=== PATIENT | female | born 1930 | race Caucasian/White ===

== ENCOUNTER → 2016-10-23 | Outpatient (REF) | payer MEDICARE, OTHER ==
[~2016-10-23] MED LIST: ACET-654 PO; ACET650T2 PO; ALBU17IN INH; ANUC25SU PR; ANUSHCSU PR; ASPI1TAB PO; AUGM875T27 PO; AZEL0.1S3; BIMA01SOL OU; CALCCAP12 PO; CRES5TAB PO; FLON0.054; HYDR12.55 PO; IBUPOTC PO; LIDO1PAD TOP; LISI25TA PO; META28PO PO; POTA1TAB14 PO; TRAM50TA2 PO; VAGI10TA VA; VITA10002 PO; VITA100041 PO; VOLT1GEL24 TD
[2016-10-23 17:28] LABS: FOLATE > 24.0 NG/ML; VITAMIN B12 LEVEL 1409 PG/ML
== END ==
LOC: M LAB REF 16:17
PROVIDERS: ATTEND Internal Medicine
DX: I10 Essential (primary) hypertension (principal); D52.8 Other folate deficiency anemias

== ENCOUNTER → 2016-12-07 | Outpatient (REF) | payer MEDICARE, OTHER | LOC: M LAB REF 16:32 | PROVIDERS: ATTEND Obstetrics & Gynecology | DX: R10.814 Left lower quadrant abdominal tenderness (principal); R10.32 Left lower quadrant pain ==

== ENCOUNTER → 2017-05-22 | Outpatient (REF) | payer MEDICARE, OTHER ==
[~2017-05-22] MED LIST changes: -ACET-654 PO; +ACET1TAB17 PO; -ACET650T2 PO; +ACET650T3 PO; -AUGM875T27 PO; +AUGM875T28 PO; -CALCCAP12 PO; +CALCCAP2 PO; +LISI2.5T76 PO; -LISI25TA PO; +VITA-182 PO; -VITA100041 PO; +VOLT1GEL15 TD; -VOLT1GEL24 TD
== END ==
LOC: M LAB REF 16:29
PROVIDERS: ATTEND Nurse Practitioner Adult Health
DX: R30.0 Dysuria (principal)

== ENCOUNTER → 2017-09-03 | Outpatient (REF) | payer MEDICARE, OTHER | LOC: M LAB REF 18:22 | PROVIDERS: ATTEND Nurse Practitioner Family | DX: N39.0 Urinary tract infection, site not specified (principal) ==

== ENCOUNTER → 2017-10-10 | Outpatient (REF) | payer MEDICARE, OTHER | LOC: M LAB REF 13:11 | DX: R31.9 Hematuria, unspecified (principal) | CPT/HCPCS: 88108 ==

== ENCOUNTER → 2017-10-31 | Outpatient (REF) | payer MEDICARE, OTHER | LOC: M LAB REF 17:11 | DX: R31.29 Other microscopic hematuria (principal); R93.5 Abnormal findings on diagnostic imaging of other abdominal regions, including retroperitoneum | CPT/HCPCS: 88108 ==

== ENCOUNTER → 2017-12-03 | Outpatient (REF) | payer MEDICARE, OTHER | LOC: M LAB REF 16:45 | DX: R31.29 Other microscopic hematuria (principal); N39.0 Urinary tract infection, site not specified | CPT/HCPCS: 88108 ==

== ENCOUNTER 2018-01-01 09:09 | Observation (INO) | payer MEDICARE, OTHER ==
[2018-01-01 09:46] LABS: BASO # 0.1 10^3/uL (0.0-0.2); BASO % 0.8 % (0.0-1.0); EOS # 0.2 10^3/uL (0.0-0.50); EOS % 2.2 % (0.0-3.0); HEMATOCRIT 38.5 % (36.0-47.0); HEMOGLOBIN 12.7 g/dl (12.0-16.0); IMMATURE GRANULOCYTE % 0.4 % (0-3.0); LYMPH # 2.9 10^3/uL (1.5-4.5); LYMPH % 26.8 % (24.0-44.0); MEAN CORPUSCULAR HEMOGLOBIN 34.5 pg (27.0-33.0); MEAN CORPUSCULAR VOLUME 104.6 fl (80.0-96.0); MONO # 0.8 10^3/uL (0.0-0.8); MONO % 7.6 % (0.0-5.0); NEUTROPHILS # 6.8 10^3/uL (1.8-7.7); NEUTROPHILS % 62.2 % (36.0-66.0); PLATELET COUNT, AUTOMATED 270 10^3/uL (150-450); RED BLOOD COUNT 3.68 10^6/uL (4.00-5.40); RED CELL DISTRIBUTION WIDTH 12.4 % (11.5-14.5); WHITE BLOOD COUNT 10.9 10^3/uL (4.0-10.0)
[2018-01-01 10:14] LABS: INR 1.05; PROTHROMBIN TIME 13.8 SECONDS (12.4-14.5)
[2018-01-01 10:20] LABS: ANION GAP 8 MEQ/L (8-16); BLOOD UREA NITROGEN 18 MG/DL (7-18); CALCIUM LEVEL 8.2 MG/DL (8.8-10.2); CARBON DIOXIDE LEVEL 25 MEQ/L (21-32); CHLORIDE LEVEL 109 MEQ/L (98-107); CK-MB VALUE MASS 1.1 NG/ML (<3.6); CPK CREATINE PHOSPHOKINASE 57 U/L (26-192); CREATININE FOR GFR 0.68 MG/DL (0.55-1.30); GLOMERULAR FILTRATION RATE > 60.0 (>32); GLUCOSE, FASTING 93 MG/DL (70-100); MB/CK RELATIVE INDEX 1.92 (< OR =4); SODIUM LEVEL 142 MEQ/L (136-145); TROPONIN I < 0.02 NG/ML (< 0.10)
[2018-01-01 10:25] LABS: ALBUMIN 3.2 GM/DL (3.2-5.2); ALBUMIN/GLOBULIN RATIO 0.86 (1.00-1.93); ALKALINE PHOSPHATASE 61 U/L (45-117); ALT/SGPT 16 U/L (12-78); AST/SGOT 18 U/L (7-37); BILIRUBIN,DIRECT < 0.1 MG/DL (0.0-0.2); BILIRUBIN,TOTAL 0.3 MG/DL (0.2-1.0); NT-PRO BNP 948 PG/ML (<450); THYROXINE (T4) 6.6 UG/DL (4.5-12.0); TOTAL PROTEIN 6.9 GM/DL (6.4-8.2)
[2018-01-01 10:47] LABS: MAGNESIUM LEVEL 2.4 MG/DL (1.8-2.4)
[2018-01-01] MEDS ORDERED: BISOPROLOL FUM 2.5 MG PER 1/2TAB PO (11:00)
[2018-01-01 11:35] LABS: KETONE, URINE AUTO RFX NEGATIVE (NEGATIVE); LEUKOCYTE ESTERASE UR AUTO RFX NEGATIVE (NEGATIVE); MUCUS, URINE RFX SMALL (NEGATIVE); NITRITE, URINE AUTO RFX NEGATIVE (NEGATIVE); RBC, URINE AUTO RFX 26 /HPF (0-3); SPECIFIC GRAVITY UR AUTO RFX 1.014 (1.002-1.035); SQUAM EPITHELIAL CELL UR AURFX 19 /HPF (0-6); WBC, URINE AUTO RFX TNTC /HPF (0-3)
[2018-01-01] MEDS: DIGOXIN 0.25 MG TAB PO (11:55)
[2018-01-01] MEDS: BISOPROLOL FUMARATE 5 MG TAB PO (11:56)
[2018-01-01] MEDS ORDERED: ACETAMINOPHEN TAB 650MG DOSE (2X325MG) PO (15:00)
[2018-01-01] MEDS: LIDOCAINE 5% (LIDODERM) PATCH TOP (16:52)
[2018-01-01] MEDS: ASPIRIN 81 MG ENTERIC TAB PO (16:52)
[2018-01-01] MEDS: traMADol 50 MG TAB PO (16:53)
[2018-01-01 18:50] LABS: CK-MB VALUE MASS 1.6 NG/ML (<3.6); CPK CREATINE PHOSPHOKINASE 55 U/L (26-192); TROPONIN I < 0.02 NG/ML (< 0.10)
[2018-01-01] MEDS: **NOTE PATIENT COMMENT** MISC XX (21:00)
[2018-01-01] MEDS: APIXABAN 2.5 MG TAB (ELIQUIS) PO (21:13)
[2018-01-01] MEDS ORDERED: SLF 3 ML SYR IV (22:30)
[2018-01-01] MEDS: AZELASTINE 137MCG NASAL SPY 30 ML (ASTELIN) (22:34)
[2018-01-01] MEDS: SLF 3 ML SYR IV (22:35)
[2018-01-02 03:05] LABS: BASO # 0.1 10^3/uL (0.0-0.2); EOS # 0.4 10^3/uL (0.0-0.50); EOS % 3.4 % (0.0-3.0); HEMATOCRIT 37.1 % (36.0-47.0); HEMOGLOBIN 12.3 g/dl (12.0-16.0); IMMATURE GRANULOCYTE % 0.3 % (0-3.0); LYMPH # 3.5 10^3/uL (1.5-4.5); LYMPH % 33.9 % (24.0-44.0); MEAN CORPUSCULAR HEMOGLOBIN 34.3 pg (27.0-33.0); MEAN CORPUSCULAR HGB CONC 33.2 g/dl (32.0-36.5); MEAN CORPUSCULAR VOLUME 103.3 fl (80.0-96.0); MONO % 9.3 % (0.0-5.0); NEUTROPHILS # 5.4 10^3/uL (1.8-7.7); NEUTROPHILS % 52.1 % (36.0-66.0); PLATELET COUNT, AUTOMATED 276 10^3/uL (150-450); RED BLOOD COUNT 3.59 10^6/uL (4.00-5.40); RED CELL DISTRIBUTION WIDTH 12.4 % (11.5-14.5); WHITE BLOOD COUNT 10.3 10^3/uL (4.0-10.0)
[2018-01-02 03:34] LABS: ALBUMIN 3.3 GM/DL (3.2-5.2); ALBUMIN/GLOBULIN RATIO 0.92 (1.00-1.93); ALKALINE PHOSPHATASE 56 U/L (45-117); ALT/SGPT 15 U/L (12-78); ANION GAP 7 MEQ/L (8-16); AST/SGOT 13 U/L (7-37); BILIRUBIN,TOTAL 0.3 MG/DL (0.2-1.0); BLOOD UREA NITROGEN 15 MG/DL (7-18); CALCIUM LEVEL 8.6 MG/DL (8.8-10.2); CARBON DIOXIDE LEVEL 25 MEQ/L (21-32); CHLORIDE LEVEL 112 MEQ/L (98-107); CPK CREATINE PHOSPHOKINASE 52 U/L (26-192); CREATININE FOR GFR 0.61 MG/DL (0.55-1.30); GLOMERULAR FILTRATION RATE > 60.0 (>32); GLUCOSE, FASTING 86 MG/DL (70-100); POTASSIUM SERUM 3.7 MEQ/L (3.5-5.1); SODIUM LEVEL 144 MEQ/L (136-145); TOTAL PROTEIN 6.9 GM/DL (6.4-8.2); TROPONIN I < 0.02 NG/ML (< 0.10)
[2018-01-02 03:43] LABS: CK-MB VALUE MASS 1.3 NG/ML (<3.6); DIGOXIN LEVEL 0.4 NG/ML (0.5-2.0)
[2018-01-02] MEDS: ASPIRIN 81 MG ENTERIC TAB PO (09:43)
[2018-01-02] MEDS: DIGOXIN 0.125 MG TAB PO (09:44)
[2018-01-02] MEDS: BISOPROLOL FUM 2.5 MG PER 1/2TAB PO (09:44)
[2018-01-02] MEDS: APIXABAN 2.5 MG TAB (ELIQUIS) PO (09:44)
[2018-01-02] MEDS: AZELASTINE 137MCG NASAL SPY 30 ML (ASTELIN) (09:45)
[2018-01-02 10:18] LABS: TROPONIN I < 0.02 NG/ML (< 0.10)
[2018-01-02 10:19] LABS: CK-MB VALUE MASS 1.1 NG/ML (<3.6); CPK CREATINE PHOSPHOKINASE 56 U/L (26-192); MB/CK RELATIVE INDEX 1.96 (< OR =4)
[2018-01-02] MEDS: CEFDINIR 300 MG CAP (OMNICEF) PO (12:39)
== END 2018-01-02 12:50 | disposition home or self-care (01) ==
LOC: M ED 09:09 → M ED INP 14:42 → M PCU 21:20
DX: I48.0 Paroxysmal atrial fibrillation (principal); N30.00 Acute cystitis without hematuria; R26.81 Unsteadiness on feet; M48.07 Spinal stenosis, lumbosacral region; I44.0 Atrioventricular block, first degree; I11.0 Hypertensive heart disease with heart failure; I50.30 Unspecified diastolic (congestive) heart failure; M79.609 Pain in unspecified limb; G89.29 Other chronic pain; J30.9 Allergic rhinitis, unspecified; Z95.0 Presence of cardiac pacemaker; D72.829 Elevated white blood cell count, unspecified; Z79.899 Other long term (current) drug therapy; Z79.01 Long term (current) use of anticoagulants; Z79.82 Long term (current) use of aspirin; Z79.891 Long term (current) use of opiate analgesic; Z88.2 Allergy status to sulfonamides
CPT/HCPCS: 71045

== ENCOUNTER → 2018-01-23 | Outpatient (REF) | payer MEDICARE, OTHER | LOC: M LAB REF 16:30 | DX: R31.0 Gross hematuria (principal) | CPT/HCPCS: 87086 ==

== ENCOUNTER 2018-01-24 13:48 | Emergency (ER) | payer MEDICARE, OTHER ==
[2018-01-24 15:44] LABS: HEMATOCRIT 36.8 % (36.0-47.0); HEMOGLOBIN 12.3 g/dl (12.0-15.5); MEAN CORPUSCULAR HEMOGLOBIN 34.5 pg (27.0-33.0); MEAN CORPUSCULAR HGB CONC 33.4 g/dl (32.0-36.5); MEAN CORPUSCULAR VOLUME 103.1 fl (80.0-96.0); PLATELET COUNT, AUTOMATED 241 10^3/uL (150-450); RED BLOOD COUNT 3.57 10^6/uL (4.00-5.40); RED CELL DISTRIBUTION WIDTH 13.1 % (11.5-14.5); WHITE BLOOD COUNT 7.4 10^3/uL (4.0-10.0)
[2018-01-24 16:06] LABS: ANION GAP 7 MEQ/L (8-16); BLOOD UREA NITROGEN 13 MG/DL (7-18); CALCIUM LEVEL 8.8 MG/DL (8.8-10.2); CARBON DIOXIDE LEVEL 25 MEQ/L (21-32); CHLORIDE LEVEL 110 MEQ/L (98-107); CREATININE FOR GFR 0.79 MG/DL (0.55-1.30); GLOMERULAR FILTRATION RATE > 60.0 (>32); GLUCOSE, FASTING 93 MG/DL (70-100); POTASSIUM SERUM 4.4 MEQ/L (3.5-5.1); SODIUM LEVEL 142 MEQ/L (136-145)
[2018-01-24 16:21] LABS: BILIRUBIN, URINE MANUAL NEGATIVE (NEGATIVE); BLOOD URINE MANUAL RFX POSITIVE (NEGATIVE); GLUCOSE, URINE (UA) MANUAL NEGATIVE (NEGATIVE); KETONE, URINE MANUAL NEGATIVE (NEGATIVE); NITRITE, URINE MANUAL RFX NEGATIVE (NEGATIVE); PROTEIN, URINE MANUAL REFLEX 2+ mg/dL (NEGATIVE); UROBILINOGEN, URINE MANUAL NORMAL (NORMAL)
[2018-01-24 16:22] LABS: BACTERIA, URINE NONE SEEN; HYALINE CAST, URINE NONE SEEN /lpf (0-1); MICROSCOPIC EXAM PERFORMED; MICROSCOPIC INDICATED? RFX YES (NO); RBC, URINE TNTC /hpf (0-3)
== END 2018-01-24 17:36 | disposition home or self-care (01) ==
LOC: M ED 13:48
DX: R31.9 Hematuria, unspecified (principal); I48.91 Unspecified atrial fibrillation; I25.10 Atherosclerotic heart disease of native coronary artery without angina pectoris; I10 Essential (primary) hypertension; M19.90 Unspecified osteoarthritis, unspecified site; R13.10 Dysphagia, unspecified; M48.00 Spinal stenosis, site unspecified; I44.2 Atrioventricular block, complete; N32.9 Bladder disorder, unspecified; Z95.0 Presence of cardiac pacemaker; Z79.82 Long term (current) use of aspirin; Z79.899 Other long term (current) drug therapy; Z79.891 Long term (current) use of opiate analgesic; Z88.0 Allergy status to penicillin
CPT/HCPCS: 80048

== ENCOUNTER → 2018-01-28 | Outpatient (REF) | payer MEDICARE, OTHER ==
[2018-01-28 17:19] LABS: AMORPHOUS SEDIMENT SMALL (NEGATIVE); APPEARANCE, URINE CLOUDY (CLEAR); BACTERIA, URINE AUTO 1+ (NEGATIVE); BILIRUBIN, URINE AUTO NEGATIVE (NEGATIVE); BLOOD, URINE BLOOD 1+ (NEGATIVE); COLOR, URINE RED (YELLOW); GLUCOSE, URINE (UA) AUTO NEGATIVE (NEGATIVE); KETONE, URINE AUTO TRACE mg/dL (NEGATIVE); LEUKOCYTE ESTERASE, URINE AUTO 2+ (NEGATIVE); NITRITE, URINE AUTO NEGATIVE (NEGATIVE); PROTEIN, URINE AUTO 2+ mg/dL (NEGATIVE); RBC, URINE AUTO 2 /HPF (0-3); SPECIFIC GRAVITY URINE AUTO 1.011 (1.002-1.035); SQUAMOUS EPITHELIAL CELL UR AU 0 /HPF (0-6); UROBILINOGEN, URINE AUTO 0.2 mg/dL (0.0-2.0); WBC, URINE AUTO 168 /HPF (0-3)
== END ==
LOC: M SMT 16:53
DX: R31.0 Gross hematuria (principal)
CPT/HCPCS: 81001

== ENCOUNTER → 2018-02-12 | Outpatient (REF) | payer MEDICARE, OTHER ==
[2018-02-12 13:30] LABS: BASO # 0.1 10^3/uL (0.0-0.2); BASO % 0.9 % (0.0-1.0); EOS # 0.1 10^3/uL (0.0-0.50); EOS % 1.3 % (0.0-3.0); HEMOGLOBIN 11.8 g/dl (12.0-15.5); IMMATURE GRANULOCYTE % 0.4 % (0-3.0); LYMPH # 2.1 10^3/uL (1.5-4.5); LYMPH % 23.6 % (24.0-44.0); MEAN CORPUSCULAR HGB CONC 32.8 g/dl (32.0-36.5); MEAN CORPUSCULAR VOLUME 103.7 fl (80.0-96.0); MONO # 0.6 10^3/uL (0.0-0.8); MONO % 6.8 % (0.0-5.0); PLATELET COUNT, AUTOMATED 253 10^3/uL (150-450); RED BLOOD COUNT 3.47 10^6/uL (4.00-5.40)
[2018-02-12 14:08] LABS: ALBUMIN 3.8 GM/DL (3.2-5.2); ANION GAP 6 MEQ/L (8-16); BLOOD UREA NITROGEN 13 MG/DL (7-18); CALCIUM LEVEL 8.8 MG/DL (8.8-10.2); CARBON DIOXIDE LEVEL 28 MEQ/L (21-32); CHLORIDE LEVEL 103 MEQ/L (98-107); CREATININE FOR GFR 0.92 MG/DL (0.55-1.30); GLOMERULAR FILTRATION RATE > 60.0 (>32); GLUCOSE, FASTING 95 MG/DL (70-100); MAGNESIUM LEVEL 2.6 MG/DL (1.8-2.4); PHOSPHORUS LEVEL 3.2 MG/DL (2.5-4.9); POTASSIUM SERUM 4.2 MEQ/L (3.5-5.1); SODIUM LEVEL 137 MEQ/L (136-145)
[2018-02-12 14:12] LABS: APPEARANCE, URINE CLOUDY (CLEAR); BACTERIA, URINE AUTO 1+ (NEGATIVE); BILIRUBIN, URINE AUTO NEGATIVE (NEGATIVE); BLOOD, URINE BLOOD NEGATIVE (NEGATIVE); CALCIUM OXALATE CRYSTALS SMALL; COLOR, URINE YELLOW (YELLOW); GLUCOSE, URINE (UA) AUTO NEGATIVE (NEGATIVE); KETONE, URINE AUTO NEGATIVE (NEGATIVE); LEUKOCYTE ESTERASE, URINE AUTO 1+ (NEGATIVE); MUCUS, URINE SMALL (NEGATIVE); NITRITE, URINE AUTO NEGATIVE (NEGATIVE); PROTEIN, URINE AUTO NEGATIVE (NEGATIVE); RBC, URINE AUTO 2 /HPF (0-3); SPECIFIC GRAVITY URINE AUTO 1.013 (1.002-1.035); SQUAMOUS EPITHELIAL CELL UR AU 11 /HPF (0-6); UROBILINOGEN, URINE AUTO 0.2 mg/dL (0.0-2.0); WBC, URINE AUTO 12 /HPF (0-3)
== END ==
LOC: M LAB REF 13:06
DX: I11.9 Hypertensive heart disease without heart failure (principal); I48.0 Paroxysmal atrial fibrillation
CPT/HCPCS: 83735

== ENCOUNTER → 2018-02-18 | Outpatient (REF) | payer MEDICARE, OTHER | LOC: M SMT 17:07 | DX: R31.29 Other microscopic hematuria (principal) | CPT/HCPCS: 88108 ==

== ENCOUNTER → 2018-04-24 | Outpatient (REF) | payer MEDICARE, OTHER ==
[2018-04-24 20:40] LABS: FOLATE > 24.0 NG/ML; TOTAL 25(OH) VITAMIN D 69.6 NG/ML (30.0-100.0); VITAMIN B12 LEVEL 1481 PG/ML
[2018-04-24 20:41] LABS: ALBUMIN 4.1 GM/DL (3.2-5.2); ALBUMIN/GLOBULIN RATIO 1.14 (1.00-1.93); ALKALINE PHOSPHATASE 60 U/L (45-117); ALT/SGPT 20 U/L (12-78); ANION GAP 7 MEQ/L (8-16); AST/SGOT 16 U/L (7-37); BILIRUBIN,TOTAL 0.3 MG/DL (0.2-1.0); BLOOD UREA NITROGEN 18 MG/DL (7-18); CARBON DIOXIDE LEVEL 26 MEQ/L (21-32); CHLORIDE LEVEL 104 MEQ/L (98-107); CREATININE FOR GFR 1.01 MG/DL (0.55-1.30); FREE T3 2.3 PG/ML (2.2-4.0); FREE T4 1.11 NG/DL (0.76-1.46); GLOMERULAR FILTRATION RATE 55.2 (>32); GLUCOSE, FASTING 66 MG/DL (70-100); POTASSIUM SERUM 4.5 MEQ/L (3.5-5.1); RHEUMATOID FACTOR QUANT < 10.0 IU/ML (<15.0); SODIUM LEVEL 137 MEQ/L (136-145); TOTAL PROTEIN 7.7 GM/DL (6.4-8.2)
[2018-04-24 20:53] LABS: BASO # 0.1 10^3/uL (0.0-0.2); BASO % 0.9 % (0.0-1.0); EOS # 0.2 10^3/uL (0.0-0.50); EOS % 2.6 % (0.0-3.0); HEMATOCRIT 40.6 % (36.0-47.0); HEMOGLOBIN 13.3 g/dl (12.0-15.5); IMMATURE GRANULOCYTE % 0.4 % (0-3.0); LYMPH # 2.4 10^3/uL (1.5-4.5); LYMPH % 28.9 % (24.0-44.0); MEAN CORPUSCULAR HEMOGLOBIN 34.6 pg (27.0-33.0); MEAN CORPUSCULAR HGB CONC 32.8 g/dl (32.0-36.5); MEAN CORPUSCULAR VOLUME 105.7 fl (80.0-96.0); MONO # 0.9 10^3/uL (0.0-0.8); MONO % 10.2 % (0.0-5.0); NEUTROPHILS # 4.8 10^3/uL (1.8-7.7); PLATELET COUNT, AUTOMATED 269 10^3/uL (150-450); RED BLOOD COUNT 3.84 10^6/uL (4.00-5.40); RED CELL DISTRIBUTION WIDTH 13.1 % (11.5-14.5); WHITE BLOOD COUNT 8.4 10^3/uL (4.0-10.0)
[2018-04-24 21:06] LABS: ERYTHROCYTE SEDIMENTATION RATE 13 mm/hr (0-42)
[2018-05-02 00:10] LABS: ACETYLCHOLINE RCPTOR BINDING A < 0.03 nmol/L (0.00-0.24); AMIODARONE (CORDARONE) 0.8 ug/mL (1.0-2.5); ANTINUCLEAR ANTIBODIES DIRECT Negative (Negative); Lyme Disease IgG/IgM Antibodie <0.91 ISR (0.00-0.90); Lyme Disease IgM Ab Quantitati <0.80 index (0.00-0.79); STRIATIONAL ANTIBODIES Negative (Neg:<1:40); VITAMIN B1 LEVEL WHOLE BLOOD 151.6 nmol/L (66.5-200.0); VITAMIN B6,PYRIDOXAL PHOSPHATE 19.3 ug/L (2.0-32.8); VITAMIN E(ALPHA TOCOPHEROL) 12.7 mg/L (9.0-29.0); VITAMIN E(GAMMA TOCOPHEROL) 0.8 mg/L (0.5-4.9)
== END ==
LOC: M LABNEURO 13:36
DX: E07.9 Disorder of thyroid, unspecified (principal); D51.9 Vitamin B12 deficiency anemia, unspecified; E55.9 Vitamin D deficiency, unspecified; G70.01 Myasthenia gravis with (acute) exacerbation; Z79.899 Other long term (current) drug therapy
CPT/HCPCS: 82746

== ENCOUNTER → 2018-04-25 | Outpatient (REF) | payer MEDICARE, OTHER ==
[2018-04-25 12:10] LABS: APPEARANCE, URINE CLOUDY (CLEAR); BACTERIA, URINE AUTO 3+ (NEGATIVE); BILIRUBIN, URINE AUTO NEGATIVE (NEGATIVE); BLOOD, URINE BLOOD 1+ (NEGATIVE); CALCIUM OXALATE CRYSTALS SMALL; COLOR, URINE YELLOW (YELLOW); GLUCOSE, URINE (UA) AUTO NEGATIVE (NEGATIVE); KETONE, URINE AUTO NEGATIVE (NEGATIVE); LEUKOCYTE ESTERASE, URINE AUTO 3+ (NEGATIVE); MUCUS, URINE SMALL (NEGATIVE); NITRITE, URINE AUTO NEGATIVE (NEGATIVE); PROTEIN, URINE AUTO NEGATIVE (NEGATIVE); RBC, URINE AUTO 7 /HPF (0-3); SPECIFIC GRAVITY URINE AUTO 1.013 (1.002-1.035); SQUAMOUS EPITHELIAL CELL UR AU 4 /HPF (0-6); UROBILINOGEN, URINE AUTO 0.2 mg/dL (0.0-2.0); WBC, URINE AUTO TNTC /HPF (0-3)
== END ==
LOC: M LAB REF 11:28
DX: N39.0 Urinary tract infection, site not specified (principal)
CPT/HCPCS: 81001

== ENCOUNTER 2018-04-26 15:25 | Emergency (ER) | payer MEDICARE, OTHER ==
[2018-04-26] MEDS: ACETAMINOPHEN TAB 650MG DOSE (2X325MG) PO (17:13)
== END 2018-04-26 18:50 | disposition home or self-care (01) ==
LOC: M ED 15:25
DX: S00.03XA Contusion of scalp, initial encounter (principal); S70.02XA Contusion of left hip, initial encounter; W01.198A Fall on same level from slipping, tripping and stumbling with subsequent striking against other object, initial encounter; Y92.018 Other place in single-family (private) house as the place of occurrence of the external cause; I10 Essential (primary) hypertension; I48.91 Unspecified atrial fibrillation; H40.9 Unspecified glaucoma; M48.00 Spinal stenosis, site unspecified; Z95.0 Presence of cardiac pacemaker; Z79.899 Other long term (current) drug therapy; Z79.82 Long term (current) use of aspirin; Z79.01 Long term (current) use of anticoagulants; Z88.1 Allergy status to other antibiotic agents; Z88.2 Allergy status to sulfonamides
CPT/HCPCS: 73552

== ENCOUNTER → 2018-06-27 | Outpatient (REF) | payer MEDICARE, OTHER ==
[2018-06-27 19:26] LABS: AMORPHOUS SEDIMENT LARGE (NEGATIVE); APPEARANCE, URINE CLOUDY (CLEAR); BACTERIA, URINE AUTO 1+ (NEGATIVE); BILIRUBIN, URINE AUTO NEGATIVE (NEGATIVE); BLOOD, URINE BLOOD 1+ (NEGATIVE); COLOR, URINE YELLOW (YELLOW); GLUCOSE, URINE (UA) AUTO NEGATIVE (NEGATIVE); KETONE, URINE AUTO NEGATIVE (NEGATIVE); LEUKOCYTE ESTERASE, URINE AUTO TRACE (NEGATIVE); NITRITE, URINE AUTO NEGATIVE (NEGATIVE); PROTEIN, URINE AUTO 1+ mg/dL (NEGATIVE); RBC, URINE AUTO 1 /HPF (0-3); SPECIFIC GRAVITY URINE AUTO 1.012 (1.002-1.035); SQUAMOUS EPITHELIAL CELL UR AU 1 /HPF (0-6); TRIPLE PHOSPHATE CRYSTALS SMALL; UROBILINOGEN, URINE AUTO 0.2 mg/dL (0.0-2.0); WBC, URINE AUTO 10 /HPF (0-3)
== END ==
LOC: M LAB REF 18:31
DX: N32.89 Other specified disorders of bladder (principal); N39.0 Urinary tract infection, site not specified
CPT/HCPCS: 81001

== ENCOUNTER → 2018-08-05 | Outpatient (REF) | payer MEDICARE, OTHER ==
[2018-08-05 18:55] LABS: APPEARANCE, URINE TURBID (CLEAR); BACTERIA, URINE AUTO 2+ (NEGATIVE); BILIRUBIN, URINE AUTO NEGATIVE (NEGATIVE); BLOOD, URINE BLOOD 1+ (NEGATIVE); COLOR, URINE YELLOW (YELLOW); GLUCOSE, URINE (UA) AUTO NEGATIVE (NEGATIVE); KETONE, URINE AUTO NEGATIVE (NEGATIVE); LEUKOCYTE ESTERASE, URINE AUTO 3+ (NEGATIVE); MUCUS, URINE SMALL (NEGATIVE); NITRITE, URINE AUTO NEGATIVE (NEGATIVE); PROTEIN, URINE AUTO NEGATIVE (NEGATIVE); RBC, URINE AUTO 6 /HPF (0-3); SPECIFIC GRAVITY URINE AUTO 1.013 (1.002-1.035); SQUAMOUS EPITHELIAL CELL UR AU 6 /HPF (0-6); UROBILINOGEN, URINE AUTO 0.2 mg/dL (0.0-2.0); WBC, URINE AUTO TNTC /HPF (0-3)
== END ==
LOC: M LAB REF 17:15
DX: N39.0 Urinary tract infection, site not specified (principal); R33.9 Retention of urine, unspecified; N36.42 Intrinsic sphincter deficiency (ISD)
CPT/HCPCS: 81001

== ENCOUNTER → 2018-09-18 | Outpatient (REF) | payer MEDICARE, OTHER ==
[2018-09-18 18:26] LABS: APPEARANCE, URINE TURBID (CLEAR); BACTERIA, URINE AUTO 3+ (NEGATIVE); BILIRUBIN, URINE AUTO NEGATIVE (NEGATIVE); BLOOD, URINE BLOOD 1+ (NEGATIVE); COLOR, URINE YELLOW (YELLOW); GLUCOSE, URINE (UA) AUTO NEGATIVE (NEGATIVE); KETONE, URINE AUTO NEGATIVE (NEGATIVE); LEUKOCYTE ESTERASE, URINE AUTO 2+ (NEGATIVE); NITRITE, URINE AUTO NEGATIVE (NEGATIVE); PROTEIN, URINE AUTO 2+ mg/dL (NEGATIVE); RBC, URINE AUTO 11 /HPF (0-3); SPECIFIC GRAVITY URINE AUTO 1.012 (1.002-1.035); SQUAMOUS EPITHELIAL CELL UR AU 5 /HPF (0-6); UROBILINOGEN, URINE AUTO 0.2 mg/dL (0.0-2.0); WBC, URINE AUTO TNTC /HPF (0-3)
== END ==
LOC: M LAB REF 16:43
DX: N39.0 Urinary tract infection, site not specified (principal)
CPT/HCPCS: 81001

== ENCOUNTER → 2018-10-24 | Outpatient (REF) | payer MEDICARE, OTHER ==
[~2018-10-24] MED LIST changes: -ACET1TAB17 PO; +ACET1TAB55 PO; +AMIO200T PO; +BISO5TAB5 PO; +CEFD300CAP PO; +DIGO0.12 PO; +ELIQ2.5T PO; +LISI2.5T5 PO; +SPIR-10 PO; +TYLE650T35 PO; +VAGI10TA PV; -VAGI10TA VA
[2018-10-24 18:25] LABS: APPEARANCE, URINE CLOUDY (CLEAR); BACTERIA, URINE AUTO 1+ (NEGATIVE); BILIRUBIN, URINE AUTO NEGATIVE (NEGATIVE); BLOOD, URINE BLOOD NEGATIVE (NEGATIVE); COLOR, URINE YELLOW (YELLOW); GLUCOSE, URINE (UA) AUTO NEGATIVE (NEGATIVE); KETONE, URINE AUTO NEGATIVE (NEGATIVE); LEUKOCYTE ESTERASE, URINE AUTO 3+ (NEGATIVE); MUCUS, URINE SMALL (NEGATIVE); NITRITE, URINE AUTO NEGATIVE (NEGATIVE); PROTEIN, URINE AUTO NEGATIVE (NEGATIVE); RBC, URINE AUTO 3 /HPF (0-3); SPECIFIC GRAVITY URINE AUTO 1.012 (1.002-1.035); SQUAMOUS EPITHELIAL CELL UR AU 0 /HPF (0-6); UROBILINOGEN, URINE AUTO 0.2 mg/dL (0.0-2.0); WBC, URINE AUTO TNTC /HPF (0-3)
== END ==
LOC: M LAB REF 16:49
PROVIDERS: ATTEND Obstetrics & Gynecology
DX: R33.9 Retention of urine, unspecified (principal)

== ENCOUNTER → 2018-11-04 | Outpatient (REF) | payer MEDICARE, OTHER ==
[2018-11-04 17:59] LABS: APPEARANCE, URINE CLOUDY (CLEAR); BACTERIA, URINE AUTO 1+ (NEGATIVE); BILIRUBIN, URINE AUTO NEGATIVE (NEGATIVE); BLOOD, URINE BLOOD NEGATIVE (NEGATIVE); COLOR, URINE YELLOW (YELLOW); GLUCOSE, URINE (UA) AUTO NEGATIVE (NEGATIVE); KETONE, URINE AUTO NEGATIVE (NEGATIVE); LEUKOCYTE ESTERASE, URINE AUTO 3+ (NEGATIVE); MUCUS, URINE SMALL (NEGATIVE); NITRITE, URINE AUTO NEGATIVE (NEGATIVE); PROTEIN, URINE AUTO NEGATIVE (NEGATIVE); RBC, URINE AUTO 3 /HPF (0-3); SPECIFIC GRAVITY URINE AUTO 1.011 (1.002-1.035); SQUAMOUS EPITHELIAL CELL UR AU 2 /HPF (0-6); UROBILINOGEN, URINE AUTO 0.2 mg/dL (0.0-2.0); WBC, URINE AUTO TNTC /HPF (0-3)
== END ==
LOC: M LAB REF 17:44
PROVIDERS: ATTEND Obstetrics & Gynecology
DX: N39.0 Urinary tract infection, site not specified (principal)

== ENCOUNTER → 2018-11-20 | Outpatient (REF) | payer MEDICARE, OTHER ==
[2018-11-20 19:18] LABS: APPEARANCE, URINE CLOUDY (CLEAR); BACTERIA, URINE AUTO NEGATIVE (NEGATIVE); BILIRUBIN, URINE AUTO NEGATIVE (NEGATIVE); BLOOD, URINE BLOOD 1+ (NEGATIVE); COLOR, URINE YELLOW (YELLOW); GLUCOSE, URINE (UA) AUTO NEGATIVE (NEGATIVE); KETONE, URINE AUTO NEGATIVE (NEGATIVE); LEUKOCYTE ESTERASE, URINE AUTO 3+ (NEGATIVE); NITRITE, URINE AUTO NEGATIVE (NEGATIVE); PROTEIN, URINE AUTO 1+ mg/dL (NEGATIVE); RBC, URINE AUTO 14 /HPF (0-3); SQUAMOUS EPITHELIAL CELL UR AU 0 /HPF (0-6); UROBILINOGEN, URINE AUTO 0.2 mg/dL (0.0-2.0); WBC, URINE AUTO TNTC /HPF (0-3)
== END ==
LOC: M LAB REF 16:37
PROVIDERS: ATTEND Obstetrics & Gynecology
DX: R33.9 Retention of urine, unspecified (principal); N39.0 Urinary tract infection, site not specified

== ENCOUNTER → 2018-12-05 | Outpatient (REF) | payer MEDICARE, OTHER ==
[2018-12-05 13:28] LABS: APPEARANCE, URINE CLOUDY (CLEAR); BACTERIA, URINE AUTO 1+ (NEGATIVE); BILIRUBIN, URINE AUTO NEGATIVE (NEGATIVE); BLOOD, URINE BLOOD 3+ (NEGATIVE); COLOR, URINE YELLOW (YELLOW); GLUCOSE, URINE (UA) AUTO NEGATIVE (NEGATIVE); KETONE, URINE AUTO NEGATIVE (NEGATIVE); LEUKOCYTE ESTERASE, URINE AUTO 3+ (NEGATIVE); NITRITE, URINE AUTO NEGATIVE (NEGATIVE); PROTEIN, URINE AUTO 1+ mg/dL (NEGATIVE); RBC, URINE AUTO 23 /HPF (0-3); SPECIFIC GRAVITY URINE AUTO 1.012 (1.002-1.035); SQUAMOUS EPITHELIAL CELL UR AU 0 /HPF (0-6); UROBILINOGEN, URINE AUTO 0.2 mg/dL (0.0-2.0); WBC, URINE AUTO TNTC /HPF (0-3)
== END ==
LOC: M LAB REF 12:32
PROVIDERS: ATTEND Obstetrics & Gynecology
DX: R33.9 Retention of urine, unspecified (principal)

== ENCOUNTER → 2018-12-18 | Outpatient (REF) | payer MEDICARE, OTHER ==
[2018-12-18 18:05] LABS: APPEARANCE, URINE CLOUDY (CLEAR); BACTERIA, URINE AUTO NEGATIVE (NEGATIVE); BILIRUBIN, URINE AUTO NEGATIVE (NEGATIVE); BLOOD, URINE BLOOD NEGATIVE (NEGATIVE); COLOR, URINE YELLOW (YELLOW); GLUCOSE, URINE (UA) AUTO NEGATIVE (NEGATIVE); KETONE, URINE AUTO NEGATIVE (NEGATIVE); LEUKOCYTE ESTERASE, URINE AUTO 3+ (NEGATIVE); MUCUS, URINE SMALL (NEGATIVE); NITRITE, URINE AUTO NEGATIVE (NEGATIVE); PROTEIN, URINE AUTO 1+ mg/dL (NEGATIVE); RBC, URINE AUTO 11 /HPF (0-3); SPECIFIC GRAVITY URINE AUTO 1.014 (1.002-1.035); SQUAMOUS EPITHELIAL CELL UR AU 1 /HPF (0-6); UROBILINOGEN, URINE AUTO 0.2 mg/dL (0.0-2.0); WBC, URINE AUTO TNTC /HPF (0-3)
== END ==
LOC: M LAB REF 16:47
PROVIDERS: ATTEND Nurse Practitioner Women's Health
DX: R33.9 Retention of urine, unspecified (principal)

== ENCOUNTER → 2019-01-08 | Outpatient (REF) | payer MEDICARE, OTHER ==
[~2019-01-08] MED LIST changes: -ANUSHCSU PR; -ASPI1TAB PO; +ASPI81TA26 PO; +HYDR1SUP3 PR; +LISI-1046 PO; -LISI2.5T5 PO
[2019-01-08 18:23] LABS: APPEARANCE, URINE CLOUDY (CLEAR); BACTERIA, URINE AUTO 1+ (NEGATIVE); BILIRUBIN, URINE AUTO NEGATIVE (NEGATIVE); BLOOD, URINE BLOOD 1+ (NEGATIVE); COLOR, URINE YELLOW (YELLOW); GLUCOSE, URINE (UA) AUTO NEGATIVE (NEGATIVE); KETONE, URINE AUTO NEGATIVE (NEGATIVE); LEUKOCYTE ESTERASE, URINE AUTO 3+ (NEGATIVE); NITRITE, URINE AUTO NEGATIVE (NEGATIVE); PROTEIN, URINE AUTO 2+ mg/dL (NEGATIVE); RBC, URINE AUTO 19 /HPF (0-3); SPECIFIC GRAVITY URINE AUTO 1.011 (1.002-1.035); SQUAMOUS EPITHELIAL CELL UR AU 4 /HPF (0-6); UROBILINOGEN, URINE AUTO 0.2 mg/dL (0.0-2.0); WBC, URINE AUTO TNTC /HPF (0-3)
== END ==
LOC: M LAB REF 16:44
PROVIDERS: ATTEND Nurse Practitioner Women's Health
DX: R33.9 Retention of urine, unspecified (principal)

== ENCOUNTER → 2019-01-13 | Outpatient (REF) | payer MEDICARE, OTHER | LOC: M LAB REF 16:36 | PROVIDERS: ATTEND Nurse Practitioner Women's Health | DX: S31.823A Puncture wound without foreign body of left buttock, initial encounter (principal); W18.30XA Fall on same level, unspecified, initial encounter; Y92.009 Unspecified place in unspecified non-institutional (private) residence as the place of occurrence of the external cause ==

== ENCOUNTER → 2019-01-24 | Outpatient (REF) | payer MEDICARE, OTHER ==
[2019-01-24 18:33] LABS: APPEARANCE, URINE CLEAR (CLEAR); BACTERIA, URINE AUTO NEGATIVE (NEGATIVE); BILIRUBIN, URINE AUTO NEGATIVE (NEGATIVE); BLOOD, URINE BLOOD NEGATIVE (NEGATIVE); COLOR, URINE YELLOW (YELLOW); GLUCOSE, URINE (UA) AUTO NEGATIVE (NEGATIVE); KETONE, URINE AUTO NEGATIVE (NEGATIVE); LEUKOCYTE ESTERASE, URINE AUTO NEGATIVE (NEGATIVE); MUCUS, URINE SMALL (NEGATIVE); NITRITE, URINE AUTO NEGATIVE (NEGATIVE); PROTEIN, URINE AUTO NEGATIVE (NEGATIVE); RBC, URINE AUTO 2 /HPF (0-3); SPECIFIC GRAVITY URINE AUTO 1.012 (1.002-1.035); SQUAMOUS EPITHELIAL CELL UR AU 1 /HPF (0-6); UROBILINOGEN, URINE AUTO 0.2 mg/dL (0.0-2.0); WBC, URINE AUTO 5 /HPF (0-3)
== END ==
LOC: M LAB REF 16:20
PROVIDERS: ATTEND Obstetrics & Gynecology
DX: R33.9 Retention of urine, unspecified (principal); N39.41 Urge incontinence; N32.81 Overactive bladder

== ENCOUNTER → 2019-02-10 | Outpatient (REF) | payer MEDICARE, OTHER ==
[2019-02-10 18:16] LABS: APPEARANCE, URINE TURBID (CLEAR); BACTERIA, URINE AUTO 1+ (NEGATIVE); BILIRUBIN, URINE AUTO NEGATIVE (NEGATIVE); BLOOD, URINE BLOOD 2+ (NEGATIVE); COLOR, URINE YELLOW (YELLOW); GLUCOSE, URINE (UA) AUTO NEGATIVE (NEGATIVE); KETONE, URINE AUTO NEGATIVE (NEGATIVE); LEUKOCYTE ESTERASE, URINE AUTO 1+ (NEGATIVE); NITRITE, URINE AUTO NEGATIVE (NEGATIVE); PROTEIN, URINE AUTO 1+ mg/dL (NEGATIVE); RBC, URINE AUTO 4 /HPF (0-3); SPECIFIC GRAVITY URINE AUTO 1.011 (1.002-1.035); SQUAMOUS EPITHELIAL CELL UR AU 0 /HPF (0-6); UROBILINOGEN, URINE AUTO 0.2 mg/dL (0.0-2.0); WBC, URINE AUTO TNTC /HPF (0-3)
== END ==
LOC: M LAB REF 16:28
PROVIDERS: ATTEND Obstetrics & Gynecology
DX: R33.9 Retention of urine, unspecified (principal); N39.41 Urge incontinence; N32.81 Overactive bladder

== ENCOUNTER → 2019-02-19 | Outpatient (REF) | payer MEDICARE, OTHER ==
[2019-02-19 18:24] LABS: APPEARANCE, URINE CLOUDY (CLEAR); BACTERIA, URINE AUTO 2+ (NEGATIVE); BILIRUBIN, URINE AUTO NEGATIVE (NEGATIVE); BLOOD, URINE BLOOD 1+ (NEGATIVE); COLOR, URINE YELLOW (YELLOW); GLUCOSE, URINE (UA) AUTO NEGATIVE (NEGATIVE); KETONE, URINE AUTO NEGATIVE (NEGATIVE); LEUKOCYTE ESTERASE, URINE AUTO TRACE (NEGATIVE); NITRITE, URINE AUTO NEGATIVE (NEGATIVE); PROTEIN, URINE AUTO 1+ mg/dL (NEGATIVE); RBC, URINE AUTO 22 /HPF (0-3); SQUAMOUS EPITHELIAL CELL UR AU 2 /HPF (0-6); UROBILINOGEN, URINE AUTO 0.2 mg/dL (0.0-2.0); WBC, URINE AUTO TNTC /HPF (0-3)
== END ==
LOC: M LAB REF 17:25
PROVIDERS: ATTEND Nurse Practitioner Women's Health
DX: R33.9 Retention of urine, unspecified (principal); N39.41 Urge incontinence; N32.81 Overactive bladder

== ENCOUNTER → 2019-03-19 | Outpatient (REF) | payer MEDICARE, OTHER ==
[~2019-03-19] MED LIST changes: +MACR100C43 PO
[2019-03-19 17:33] LABS: APPEARANCE, URINE CLEAR (CLEAR); BACTERIA, URINE AUTO NEGATIVE (NEGATIVE); BILIRUBIN, URINE AUTO NEGATIVE (NEGATIVE); BLOOD, URINE BLOOD NEGATIVE (NEGATIVE); COLOR, URINE YELLOW (YELLOW); GLUCOSE, URINE (UA) AUTO NEGATIVE (NEGATIVE); KETONE, URINE AUTO NEGATIVE (NEGATIVE); LEUKOCYTE ESTERASE, URINE AUTO TRACE (NEGATIVE); NITRITE, URINE AUTO NEGATIVE (NEGATIVE); PROTEIN, URINE AUTO NEGATIVE (NEGATIVE); RBC, URINE AUTO 3 /HPF (0-3); SPECIFIC GRAVITY URINE AUTO 1.011 (1.002-1.035); SQUAMOUS EPITHELIAL CELL UR AU 0 /HPF (0-6); UROBILINOGEN, URINE AUTO 0.2 mg/dL (0.0-2.0); WBC, URINE AUTO 27 /HPF (0-3)
== END ==
LOC: M LAB REF 16:30
PROVIDERS: ATTEND Obstetrics & Gynecology
DX: R33.9 Retention of urine, unspecified (principal); N32.81 Overactive bladder

== ENCOUNTER 2019-04-03 05:40 | Emergency (ER) | payer MEDICARE, OTHER ==
[~2019-04-03] VITALS: Ht 157.5 cm; Wt 43.0 kg
[~2019-04-03 05:40] MED LIST changes: +CYAN100049 PO; -VITA10002 PO
[2019-04-03 06:06] LABS: BASO # 0.1 10^3/uL (0.0-0.2); BASO % 0.9 % (0.0-1.0); EOS # 0.3 10^3/uL (0.0-0.50); EOS % 3.3 % (0.0-3.0); HEMATOCRIT 36.8 % (36.0-47.0); LYMPH # 2.9 10^3/uL (1.5-4.5); LYMPH % 27.5 % (24.0-44.0); MEAN CORPUSCULAR HEMOGLOBIN 33.6 pg (27.0-33.0); MEAN CORPUSCULAR HGB CONC 32.6 g/dl (32.0-36.5); MEAN CORPUSCULAR VOLUME 103.1 fl (80.0-96.0); MONO # 0.9 10^3/uL (0.0-0.8); NEUTROPHILS # 6.2 10^3/uL (1.8-7.7); NEUTROPHILS % 59.1 % (36.0-66.0); PLATELET COUNT, AUTOMATED 280 10^3/uL (150-450); RED BLOOD COUNT 3.57 10^6/uL (4.00-5.40); WHITE BLOOD COUNT 10.4 10^3/uL (4.0-10.0)
[2019-04-03] MEDS ORDERED: NITR0.4S14 SL (06:14)
[2019-04-03] MEDS ORDERED: ACET-907 PO (06:14)
[2019-04-03] MEDS ORDERED: SPIR-10 PO (06:14)
[2019-04-03] MEDS ORDERED: VOLT1GEL15 TOP (06:14)
[2019-04-03] MEDS ORDERED: ARTI99.0 OP (06:14)
[2019-04-03 06:16] LABS: INR 1.17; PROTHROMBIN TIME 14.6 SECONDS (11.8-14.0)
[2019-04-03 06:17] LABS: PARTIAL THROMBOPLASTIN TIME 38.3 SECONDS (25.0-38.4)
[2019-04-03 06:30] LABS: BLOOD UREA NITROGEN 14 MG/DL (7-18); CALCIUM LEVEL 9.1 MG/DL (8.8-10.2); CARBON DIOXIDE LEVEL 26 MEQ/L (21-32); CHLORIDE LEVEL 108 MEQ/L (98-107); GLOMERULAR FILTRATION RATE > 60.0 (>32); GLUCOSE, FASTING 90 MG/DL (70-100); POTASSIUM SERUM 4.3 MEQ/L (3.5-5.1); SODIUM LEVEL 141 MEQ/L (136-145)
--- NOTE | 2019-04-03 06:35 | REPVR ---
EXAM: CT Cervical Spine Without Contrast EXAM DATE/TIME: 04/03/2019 5:51 AM CLINICAL HISTORY: 88 years old, female; Injury or trauma; Fall; Initial encounter; Concussion /head injury; Additional info: Fall, on eliquis TECHNIQUE: Imaging protocol: Axial computed tomography images of the cervical spine without contrast. Coronal and sagittal reformatted images were created and reviewed. Radiation optimization: All CT scans at this facility use at least one of these dose optimization techniques: automated exposure control; mA and/or kV adjustment per patient size (includes targeted exams where dose is matched to clinical indication); or iterative reconstruction. COMPARISON: CT Spine,cervical w/o contrast 03/09/2019 3:18 PM FINDINGS: Vertebrae: See Discs/spinal Canal/neural Foramina Finding. Discs/Spinal canal/Neural foramina: There is extensive C5-C6 degenerative changes with near ankylosis of the vertebral bodies. There is severe disc degenerative changes at C6-C7. There is multilevel facet arthrosis most severe on the right at C2-C3 through C5-C6. There is grade 1-2 anterolisthesis of C3 on C4 and C4 on C5. There is multilevel neural foraminal narrowing most prominent on the left side at C3-C4 through C5-C6. Soft tissues: Unremarkable. Thyroid: The thyroid gland is atrophic. Lungs: There is significant biapical lung scarring with calcifications. Other findings: There is extensive atlantodens productive changes. IMPRESSION: 1. No definite CT evidence of traumatic cervical spine injury. 2. Extensive cervical spine DJD. Electronically signed by: Jacob Abbott On 04/03/2019 06:34:57 AM
--- NOTE | 2019-04-03 06:41 | REPVR ---
EXAM: CT Head Without Contrast EXAM DATE/TIME: 04/03/2019 5:51 AM CLINICAL HISTORY: 88 years old, female; Injury or trauma; Fall; Additional info: Fall, on eliquis TECHNIQUE: Imaging protocol: Axial computed tomography images of the head without contrast. Radiation optimization: All CT scans at this facility use at least one of these dose optimization techniques: automated exposure control; mA and/or kV adjustment per patient size (includes targeted exams where dose is matched to clinical indication); or iterative reconstruction. COMPARISON: CT Head without contrast 03/09/2019 3:18 PM FINDINGS: Brain: There is a small amount of subarachnoid blood in the interhemispheric falx extending to a left frontal sulcus. (Axial image 24). There is a trace amount of blood in the interhemispheric falx extending inferiorly to the supraoptic and suprasellar recess (axial image 12). Ventricles: There is age related cerebral atrophy with secondary ventricular dilatation. There is extensive matter hypoattenuation without mass effect. Bones/joints: Unremarkable. No acute fracture. Sinuses: Visualized sinuses are unremarkable. No fluid levels. Mastoid air cells: Visualized mastoid air cells are well aerated. No mastoid effusion. Soft tissues: Unremarkable. IMPRESSION: 1. Small amount of subarachnoid blood in the interhemispheric falx extending inferiorly into the supraoptic and suprasellar recess. 2. No definite intra-axial hemorrhage, mass effect or midline shift seen. 3. Age related cerebral atrophy with extensive chronic microangiopathic changes. Electronically signed by: Jacob Abbott On 04/03/2019 06:40:31 AM
[2019-04-03 06:50] LABS: CK-MB VALUE MASS < 1.0 NG/ML (<3.6); CPK CREATINE PHOSPHOKINASE 54 U/L (26-192); MB/CK RELATIVE INDEX 1.85 (< OR =4); TROPONIN I < 0.02 NG/ML (< 0.10)
[2019-04-03] MEDS ORDERED: NS 1,000 ML IV SCH (07:00)
--- NOTE | 2019-04-03 07:05 | REP ---
Clinical: Trauma. Fall. Technique: Single AP view of the pelvis. Comparison: 03/09/2019. Findings: Stable age-related degenerative changes noted throughout the visualized lumbosacral spine and pelvis/hips. No acute fracture or dislocation is appreciated. Impression: No acute fracture or dislocation. Electronically Signed by Franck Weiner MD 04/03/2019 06:57 A
[2019-04-03 08:16] VITALS: BP 173/72
--- NOTE | 2019-04-03 20:02 | ECGEPIP ---
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 Order Number: [id number] Reading MD: Zenon Estrella Measurements Intervals [place] Rate: 70 P: 93 NV: 233 QRS: QRSD: 81 T: QT: 371 QTc: 402 Interpretive Statements SINUS RHYTHM WITH FIRST DEGREE AV BLOCK ELECTRONIC ATRIAL PACEMAKER LEFT AXIS DEVIATION ST DEVIATION AND MODERATE T-WAVE ABNORMALITY, CONSIDER ANTEROLATERAL ISCHEMIA ST DEVIATION AND MODERATE T-WAVE ABNORMALITY, CONSIDER INFERIOR ISCHEMIA Electronically Signed on 04-03-2019 20:02:24 EDT by Zenon Estrella
== END 2019-04-03 08:23 | disposition short-term general hospital (02) ==
LOC: M ED 05:40
DX: I60.9 Nontraumatic subarachnoid hemorrhage, unspecified (principal); T14.8XXA Other injury of unspecified body region, initial encounter; W01.0XXA Fall on same level from slipping, tripping and stumbling without subsequent striking against object, initial encounter; Y92.018 Other place in single-family (private) house as the place of occurrence of the external cause; I10 Essential (primary) hypertension; I48.91 Unspecified atrial fibrillation; Z95.0 Presence of cardiac pacemaker; Z79.899 Other long term (current) drug therapy; Z79.01 Long term (current) use of anticoagulants; Z88.1 Allergy status to other antibiotic agents; Z88.2 Allergy status to sulfonamides

== ENCOUNTER 2019-04-23 10:19 | Inpatient (IN) | payer MEDICARE, OTHER ==
[~2019-04-23] VITALS: Ht 152.4 cm; Wt 41.5 kg
[~2019-04-23 10:19] MED LIST changes: +ACET-907 PO; +ARTI99.0 OU; +NITR0.4S14 SL; +VOLT1GEL15 TOP
[2019-04-23] MEDS ORDERED: NS 1,000 ML IV SCH (10:39)
[2019-04-23 11:27] LABS: BASO # 0.1 10^3/uL (0.0-0.2); BASO % 0.7 % (0.0-1.0); EOS # 0.1 10^3/uL (0.0-0.50); EOS % 0.5 % (0.0-3.0); HEMATOCRIT 37.5 % (36.0-47.0); HEMOGLOBIN 12.4 g/dl (12.0-15.5); LYMPH # 2.6 10^3/uL (1.5-4.5); LYMPH % 25.5 % (24.0-44.0); MEAN CORPUSCULAR HEMOGLOBIN 34.7 pg (27.0-33.0); MEAN CORPUSCULAR HGB CONC 33.1 g/dl (32.0-36.5); MONO # 1.1 10^3/uL (0.0-0.8); MONO % 10.7 % (0.0-5.0); NEUTROPHILS # 6.3 10^3/uL (1.8-7.7); NEUTROPHILS % 62.5 % (36.0-66.0); PLATELET COUNT, AUTOMATED 261 10^3/uL (150-450); RED BLOOD COUNT 3.57 10^6/uL (4.00-5.40)
[2019-04-23 11:39] LABS: INR 1.25; PROTHROMBIN TIME 15.4 SECONDS (11.8-14.0)
[2019-04-23 12:25] LABS: ALBUMIN 3.6 GM/DL (3.2-5.2); ALT/SGPT 13 U/L (12-78); BILIRUBIN,DIRECT 0.2 MG/DL (0.0-0.2); BILIRUBIN,TOTAL 0.7 MG/DL (0.2-1.0); BLOOD UREA NITROGEN 13 MG/DL (7-18); CALCIUM LEVEL 9.5 MG/DL (8.8-10.2); CARBON DIOXIDE LEVEL 30 MEQ/L (21-32); CHLORIDE LEVEL 105 MEQ/L (98-107); CK-MB VALUE MASS < 1.0 NG/ML (<3.6); CPK CREATINE PHOSPHOKINASE 42 U/L (26-192); CREATININE FOR GFR 0.76 MG/DL (0.55-1.30); GLOMERULAR FILTRATION RATE > 60.0 (>32); GLUCOSE, FASTING 80 MG/DL (70-100); LIPASE 70 U/L (73-393); MB/CK RELATIVE INDEX 2.38 (< OR =4); POTASSIUM SERUM 4.5 MEQ/L (3.5-5.1); SODIUM LEVEL 142 MEQ/L (136-145); TOTAL PROTEIN 6.9 GM/DL (6.4-8.2); TROPONIN I < 0.02 NG/ML (< 0.10)
[2019-04-23] MEDS ORDERED: ONDANSETRON 4MG/2ML VIAL (J2405) IV ONE (12:45)
[2019-04-23] MEDS ORDERED: MORPHINE 2 MG/ML 1ML SYRINGE (J2270) IV PRN (12:45)
--- NOTE | 2019-04-23 13:14 | REP ---
CT OF THE LUMBAR SPINE WITHOUT CONTRAST: CT of the lumbar spine performed without IV contrast. Sagittal and coronal reconstruction images are performed. Comparison made with a prior study of 12/03/2018. There is an old mild compression deformity of L1. No new compression fracture is seen. There is slight anterior listhesis of L4 on L5, which is stable. There is mild disc space narrowing at L1-2 with moderately severe narrowing, subchondral sclerosis and vacuum at L2-3, L3-4, and L4-5. Mild ill defined calcification is seen in the disc of L1-2 and L5-S1. There is curvature of the thoracolumbar spine convex to the left with the apex of the curvature at the L1-2 level. There is minor disc bulging at L1-2. There is moderate disc bulging at L2-3 and L3-4. There is significant moderately severe diffuse disc bulging at L4-5. There is minimal disc bulging at L5-S1. There is diffuse hypertrophic spurring and sclerosis at the posterior facet joint with hypertrophy of the ligamentum flavum. At the L2-3 and L3-4 level. There is moderate spinal stenosis, which is unchanged. There is mild right-sided foraminal narrowing at L2-3 level and moderate narrowing on the left at L3-4. Moderately severe spinal stenosis at L4-5 is unchanged since the prior exam with mild to moderate left-sided foraminal narrowing also unchanged. Incidental note is made of mild to moderate left hydroureteronephrosis. IMPRESSION: Old mild compression deformity at L1. No new fracture or dislocation. Degenerative disc changes as discussed in detail above with multilevel disc bulging most significantly at L2-3, L3-4, and L4-5. There is moderate central canal stenosis at L2-3 and L3-4 with moderately severe stenosis at L4-5. The findings are essentially unchanged compared to the prior CT of 12/03/2018. There is no new fracture or dislocation. Incidental note is made of mild to moderate left hydroureteronephrosis. Electronically Signed by Ming Cartagena MD 04/26/2019 06:26 P
[2019-04-23] MEDS ORDERED: cefTRIAXone SOD 2 GM in D5W MINI-BAG PLUS 50 ML IV ONE (13:15)
--- NOTE | 2019-04-23 13:56 | REP ---
CT of the abdomen and pelvis. The for renal calculus: Comparison is 07/31/2017. Within the visualized lower lung valdez. There are too small left lower lobe lung nodules on the prior study. One of these two nodules is included on the scan today and is unchanged in size. The second nodule previously identified is not included on the scan today. The visualized right lung is unremarkable. The unenhanced hepatic parenchyma is demonstrates a cyst in the lateral segment of the left lobe. 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 . The adrenals are unremarkable. There is a 3 mm nonobstructive calculus in the left renal upper pole. This is unchanged. No other renal calculi are identified. There is no hydronephrosis. There is a cyst at the upper pole of the left kidney, unchanged. There are no ureteral calculi. There is no hydronephrosis. There are no bladder calculi. The bladder calculi identified previously are no longer present. There are multiple phleboliths in the pelvis. Pelvis: The appendix is unremarkable. The uterus and adnexa are unremarkable for patient age. There is no adenopathy or ascites. The pelvic bowel loops are unremarkable. Impression: There is a 3 ml nonobstructive calculus in the left renal upper pole. There is a stable left renal upper pole cyst. 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 The previous bladder calculi are no longer identified. Electronically Signed by Ming Rodgers MD 04/23/2019 01:48 P
[2019-04-23] MEDS ORDERED: BISO5TAB5 PO (15:16)
[2019-04-23] MEDS ORDERED: DIGO0.12 PO (15:16)
[2019-04-23] MEDS ORDERED: VITAD1000T PO (15:17)
[2019-04-23] MEDS ORDERED: B-121TAB3 PO (15:18)
--- NOTE | 2019-04-23 15:22 | HPEPDOC ---
General Date of Admission Apr 23, 2019 at 14:59 Date of Service: Apr 23, 2019 Chief Complaint The patient is a 88-year-old female Who presented to the emergency room with complaints of generalized weakness History of Present Illness Patient is an 88-year-old female with a PMHx of Paroxysmal A. 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 Patient had had a fall on April 03 at home and was brought to the emergency room where she was found to have intracranial bleed. She was taken to [facility] in [place]. Patient was observed and did not require any further intervention. Patient had a subsequent follow-up CT scan on Sunday04/21/2019 that was reported to be consistent with prior imaging. Patient was taken off anticoagulation for atrial fibrillation at that time. Patients family has noted that she has been experiencing frequent urinary tract infections. As an outpatient she continues to use intermittent catheterizations performed by a visiting nurse. Patients family have reported that she gets catheterized every 2 days. Over the last 4 days shes been catheterized daily with output ranging from 650-7 50 mL and today with an output of 1200 mL. I have advised the family that she should have an indwelling Lubin catheter placed. However, family does not 1 to pursue this option at this time. Currently patient denies fevers, chills, nausea, vomiting, abdominal pain, constipation, diarrhea. Patient does pass some urine, however, still has residual that his catheterized. Patient denies chest pain, shortness of breath or cough. Patient also reports a poor appetite and a weight loss that she is unable to quantify. Home Medications Scheduled Apixaban (Eliquis) 2.5 Mg Tab, 2.5 MG PO BID, (Reported) RECENTLY DISCONTINUED DUE TO BRAIN BLEED (04/03/19) Aspirin (Aspirin EC) 81 Mg Tab, 81 MG PO DAILY, (Reported) RECENTLY DISCONTINUED DUE TO BRAIN BLEED (04/03/19) Bimatoprost (Lumigan) 50 Drop/2.5 Ml Carmen, 1 DROP OU DAILY, (Reported) Bisoprolol Fumarate (Bisoprolol Fumarate) 5 Mg Tablet, 5 MG PO QHS, (Reported) Cyanocobalamin (Vitamin B-12) (B-12) 500 Mcg Tablet, 500 MCG PO DAILY, (Reported ) Digoxin (Digoxin) 125 Mcg Tablet, 125 MCG PO QHS, (Reported) Estradiol (Vagifem) 10 Mcg Tab, 1 DOSE PV QHS, (Reported) APPLY TO FINGERTIP Vitamin D (Vitamin D3) 1,000 Unit Tablet, 2,000 UNITS PO DAILY, (Reported) Scheduled PRN Acetaminophen (Tylenol) 325 Mg Tablet, 650 MG PO QID PRN for PAIN OR FEVER, (Reported) Lidocaine (Lidocaine) 5 % Pad, 1 PATCH TOP DAILY PRN for PAIN, (Reported) PATIENT CAN APPLY 1 OR 2 PATCHES TO BACK Nitroglycerin (Nitroglycerin) 0.4 Mg Tab.subl, 0.4 MG SL Q5MP PRN for CHEST PAIN , (Reported) Polyvinyl Alcohol (Artificial Tears) 15 Ml Drops, 1 DROP OU QID PRN for DRY EYES, (Reported) Spironolactone (Spironolactone) 25 Mg Tablet, 12.5 MG PO DAILY PRN for BLOOD PRESSURE, (Reported) takes if SBP>135 or DBP>85 Tramadol HCl (Tramadol HCl) 50 Mg Tab, 100 MG PO TID PRN for PAIN OR SHORTNESS OF BREATH, (Reported) Allergies Coded Allergies: Sulfa (Sulfonamide Antibiotics) (Verified Allergy, Intermediate, 03/09/19) Past Medical History Medical History Paroxysmal A. 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), DLP, Allergic rhinitis, Glaucoma, Urinary retention (intermittent catheterization) and Severe lumbar spinal stenosis Recent history of intracranial bleed Surgical History Bilateral cataract excision Pacemaker Family History - Mother and father without any reported medical problems Social History - Denies the use of alcohol, tobacco or illicit drugs - Denies recent travel or sick contacts - Lives alone, but has 24/7 care and has 3 daughters that visit her frequently - Occupation; retired Review of Systems Other systems 10 point review of systems complete, all negative otherwise stated in HPI Vital Signs - Vitals: BP 145/65, HR 69, RR 18, Sat 95%RA, Temp 97.3F - General: Lying in bed, No acute distress, Speaking in full sentences, AAOx3 - HEENT: NC, AT, PERRLA, EOMI - CVS:+S1S2 - Lungs: Fair air entry bilaterally, No appreciable wheezing / rales / rhonchi - Abdomen: Soft, Non-distended, Non-tender - Extremities: No lower extremity edema, No calf tenderness - Neuro: No focal motor or sensory deficit - Skin: No visible rashes Laboratory Data Labs 24H Laboratory Tests 2 04/23/19 11:10: Immature Granulocyte % (Auto) 0.1, White Blood Count 10.0, Red Blood Count 3.57L, Hemoglobin 12.4, Hematocrit 37.5, Mean Corpuscular Volume 105.0H, Mean Corpuscular Hemoglobin 34.7H, Mean Corpuscular Hemoglobin Concent 33.1, Red Cell Distribution Width 13.0, Platelet Count 261, Neutrophils (%) (Auto) 62.5, Lymphocytes (%) (Auto) 25.5, Monocytes (%) (Auto) 10.7H, Eosinophils (%) (Auto) 0.5, Basophils (%) (Auto) 0.7, Neutrophils # (Auto) 6.3, Lymphocytes # (Auto) 2.6, Monocytes # (Auto) 1.1H, Eosinophils # (Auto) 0.1, Basophils # (Auto) 0.1, Nucleated Red Blood Cells % (auto) 0.0, Prothrombin Time 15.4H, Prothromb Time International Ratio 1.25, Urine Color YELLOW, Urine Appearance TURBIDH, Urine pH 7.0, Urine Specific [place] 1.011, Urine Protein 2+H, Urine Glucose (UA) NEGATIVE, Urine Ketones TRACEH, Urine Blood 1+H, Urine Nitrite POSITIVEH, Urine Bilirubin NEGATIVE, Urine Urobilinogen 0.2, Urine Leukocyte Esterase 3+H, Urine WBC (Auto) TNTCH, Urine RBC (Auto) 29H, Urine Hyaline Casts (Auto) 0, Urine Bacteria (Auto) 1+H, Urine Squamous Epithelial Cells 8, Urine Amorphous Sediment SMALLH, Urine Sperm (Auto) , Anion Gap 7L, Glomerular Filtration Rate > 60.0, Calcium Level 9.5, Aspartate Amino Transf (AST/SGOT) 15, Alanine Aminotr ansferase (ALT/SGPT) 13, Alkaline Phosphatase 46, Total Bilirubin 0.7, Direct Bilirubin 0.2, Total Creatine Kinase 42, Creatine Kinase MB < 1.0, Creatine Kinase MB Relative Index 2.38, Troponin I < 0.02, Total Protein 6.9, Albumin 3.6, Albumin/Globulin Ratio 1.09, Lipase 70L CBC/BMP Laboratory Tests 04/23/19 11:10 Red Blood Count 3.57 L, Mean Corpuscular Volume 105.0 H, Mean Corpuscular Hemoglobin 34.7 H, Mean Corpuscular Hemoglobin Concent 33.1, Red Cell Distribution Width 13.0, Neutrophils (%) (Auto) 62.5, Lymphocytes (%) (Auto) 25.5, Monocytes (%) (Auto) 10.7 H, Eosinophils (%) (Auto) 0.5, Basophils (%) (Auto) 0.7, Neutrophils # (Auto) 6.3, Lymphocytes # (Auto) 2.6, Monocytes # (Auto) 1.1 H, Eosinophils # (Auto) 0.1, Basophils # (Auto) 0.1 Microbiology Microbiology 04/23/19 Urine Culture, Received Pending RAD Interpretation RAD Interpretation: Other Result Comments: (CT Lumbar spine 04/23: Old mild compression deformity at L1. No new fracture or dislocation. Degenerative disc changes as discussed in detail above with multilevel disc bulging most significantly at L2-3, L3-4, and L4-5. There is moderate central canal stenosis at L2-3 and L3-4 with moderately severe stenosis at L4-5. The findings are essentially unchanged compared to the prior CT of 12/03/2018. There is no new fracture or dislocation. Incidental note is made of mild to moderate left h ydroureteronephrosis.) Plan / VTE VTE Prophylaxis Ordered?: Yes Plan Plan Generalized weakness - possibly 2/2 infectious etiology - likely 2/2 UTI, less likely 2/2 neurologic etiology - Patient has reported generalized weakness for 1 day duration - Physical without any focal neurologic deficits - Imaging via CT lumbar spine is essentially unchanged compared to CT from 12/03/2018 - Imaging via CT abdomen and pelvis does reveal an nonobstructive calculus in the left renal upper pole with moderate left hydroureteronephrosis - As an outpatient it seems the patient does not receive an adequate frequency of catheterizations, which increases her risk of developing a urinary tract infection - Discussed with family about indwelling Lubin catheter; they would like to avoid this moving forward - Review of prior urinary tract infections. 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 We will bladder scan her every 6 hours and straight cath for volume greater than 350 Severe lumbar spinal stenosis - Will continue with pain control as above DVT prophylaxis - Will start NIKO/Sequentials Advanced Directives: Health Care Proxy (HCP) (- Discussed with family about CODE STATUS. Currently, patients wishes to remain full code) JUDI CORTÉS MD Apr 23, 2019 15:22
[2019-04-23 15:28] LABS: C REACTIVE PROTEIN QUANTITATIV 6.04 MG/DL (0.00-0.30)
[2019-04-23] MEDS ORDERED: NITROGLYCERIN 0.4 MG SUBL TABLET SL PRN (16:00)
[2019-04-23] MEDS ORDERED: POLYVINYL ALCOHOL OPHTH SOLN 15 ML(LIQUITEARS) OU PRN (16:00)
[2019-04-23] MEDS ORDERED: ONDANSETRON 4MG/2ML VIAL (J2405) IV PRN (16:00)
[2019-04-23] MEDS ORDERED: MORPHINE 4 MG/ML 1ML VIAL/SYRINGE (J2270) IV PRN (16:00)
[2019-04-23] MEDS: NS 1,000 ML IV SCH ×2 (17:32→20:54)
[2019-04-23] MEDS: CEFEPIME HCL 1 GM in D5W MINI-BAG PLUS 50 ML IV SCH (17:32)
[2019-04-23 18:31] VITALS: BP 170/75
--- NOTE | 2019-04-23 19:15 | ECGEPIP ---
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
[2019-04-23] MEDS: BISOPROLOL FUMARATE 5 MG TAB PO SCH (20:40)
[2019-04-23] MEDS: LATANOPROST 0.005% OPHTH SOLN 2.5 ML OU SCH (20:41)
[2019-04-23] MEDS: DIGOXIN 0.125 MG TAB PO SCH (20:41)
[2019-04-23] MEDS: traMADol 50 MG TAB PO PRN (20:53)
[2019-04-23 22:00] VITALS: BP 135/61
[2019-04-24 06:00] VITALS: BP 126/60
[2019-04-24 06:16] LABS: BASO # 0.1 10^3/uL (0.0-0.2); BASO % 1.2 % (0.0-1.0); EOS # 0.2 10^3/uL (0.0-0.50); EOS % 2.4 % (0.0-3.0); HEMATOCRIT 35.4 % (36.0-47.0); HEMOGLOBIN 11.4 g/dl (12.0-15.5); LYMPH # 2.3 10^3/uL (1.5-4.5); LYMPH % 27.5 % (24.0-44.0); MEAN CORPUSCULAR HEMOGLOBIN 34.3 pg (27.0-33.0); MEAN CORPUSCULAR HGB CONC 32.2 g/dl (32.0-36.5); MEAN CORPUSCULAR VOLUME 106.6 fl (80.0-96.0); MONO % 12.2 % (0.0-5.0); NEUTROPHILS # 4.7 10^3/uL (1.8-7.7); NEUTROPHILS % 56.5 % (36.0-66.0); PLATELET COUNT, AUTOMATED 250 10^3/uL (150-450); RED BLOOD COUNT 3.32 10^6/uL (4.00-5.40); WHITE BLOOD COUNT 8.3 10^3/uL (4.0-10.0)
[2019-04-24 06:40] LABS: BLOOD UREA NITROGEN 10 MG/DL (7-18); C REACTIVE PROTEIN QUANTITATIV 6.67 MG/DL (0.00-0.30); CALCIUM LEVEL 8.6 MG/DL (8.8-10.2); CARBON DIOXIDE LEVEL 27 MEQ/L (21-32); CHLORIDE LEVEL 108 MEQ/L (98-107); CREATININE FOR GFR 0.57 MG/DL (0.55-1.30); GLOMERULAR FILTRATION RATE > 60.0 (>32); GLUCOSE, FASTING 75 MG/DL (70-100); MAGNESIUM LEVEL 2.1 MG/DL (1.8-2.4); POTASSIUM SERUM 3.5 MEQ/L (3.5-5.1); SODIUM LEVEL 142 MEQ/L (136-145)
[2019-04-24] MEDS: traMADol 50 MG TAB PO PRN ×2 (06:50→18:15)
[2019-04-24] MEDS: LIDOCAINE 5% (LIDODERM) PATCH TD SCH (09:42)
[2019-04-24] MEDS: VITAMIN D 1,000 INTERNATIONAL UNITS TABLET PO SCH (09:43)
[2019-04-24 14:00] VITALS: BP 180/79
--- NOTE | 2019-04-24 15:11 | IPNPDOC ---
Text Note Date of Service The patient was seen on 04/24/19. NOTE Subjective: Patient is an 88-year-old female with a PMHx of Paroxysmal A. 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 Patients family has noted that she has been experiencing frequent urinary tract infections. As an outpatient she continues to use intermittent catheterizations performed by a visiting nurse. Patients family have reported that she gets catheterized every 2 days. Over the last 4 days shes been catheterized daily with output ranging from 650-7 50 mL and today with an output of 1200 mL. I have advised the family that she should have an indwelling Lubin catheter placed. However, family does not 1 to pursue this option at this time. Patient was admitted to hospitalist service for suspected urinary tract infection. Patient was seen and examined at the bedside. Currently, patient reports that her energy levels are doing better today. She denies any chest pain, shortness of breath or palpitations. Still does not report any significant urinary sy mptoms. Denies any nausea, vomiting, abdominal pain, constipation or diarrhea. Objective: Vitals (See below) General: Lying in bed, no acute distress, comfortable, AAOx3 HEENT: NC, AT CVS: RRR, +S1S2 Lungs: Fair air entry b/l, no appreciable wheezing, rhonchi or rales Abdomen: Soft, ND, NT Extremities: - Edema, - Calf tenderness Assessment and plan: Generalized weakness - possibly 2/2 infectious etiology - likely 2/2 UTI, less likely 2/2 neurologic etiology - Patient has reported generalized weakness for 1 day duration - Imaging via CT lumbar spine is essentially unchanged compared to CT from 12/03/2018 - Imaging via CT abdomen and pelvis does reveal an nonobstructive calculus in the left renal upper pole with moderate left hydroureteronephrosis - As an outpatient it seems the patient does not receive an adequate frequency of catheterizations, which increases her risk of developing a urinary tract infection - Discussed with family about indwelling Lubin catheter; they would like to avoid this moving forward - Review of prior urinary tract infections. 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 We will bladder scan her every 6 hours and straight cath for volume greater than 350 Severe lumbar spinal stenosis - Will continue with pain control as above DVT prophylaxis - c/w NIKO/Sequentials VS,Fishbone, I+O VS, Fishbone, I+O Laboratory Tests 04/24/19 05:36 Red Blood Count 3.32 L, Mean Corpuscular Volume 106.6 H, Mean Corpuscular Hemoglobin 34.3 H, Mean Corpuscular Hemoglobin Concent 32.2, Red Cell Distribution Width 13.0, Neutrophils (%) (Auto) 56.5, Lymphocytes (%) (Auto) 27.5, Monocytes (%) (Auto) 12.2 H, Eosinophils (%) (Auto) 2.4, Basophils (%) (Auto) 1.2 H, Neutrophils # (Auto) 4.7, Lymphocytes # (Auto) 2.3, Monocytes # (Auto) 1.0 H, Eosinophils # (Auto) 0.2, Basophils # (Auto) 0.1 04/24/19 05:37 Calcium Level 8.6 L Vital Signs Date Time Temp Pulse Resp B/P (MAP) Pulse Ox O2 Delivery O2 Flow Rate FiO2 04/24/19 14:00 97.1 70 18 180/79 (112) 97 04/23/19 17:33 Room Air I&O- Last 24 Hours up to 6 AM 04/24/19 06:00 Intake Total 1064 ml Output Total 4200 ml Balance -3136 ml JUDI CORTÉS MD Apr 24, 2019 15:09
[2019-04-24] MEDS: CEFEPIME HCL 1 GM in D5W MINI-BAG PLUS 50 ML IV SCH (18:06)
[2019-04-24] MEDS: BISOPROLOL FUMARATE 5 MG TAB PO SCH (20:32)
[2019-04-24] MEDS: LATANOPROST 0.005% OPHTH SOLN 2.5 ML OU SCH (20:32)
[2019-04-24] MEDS: DIGOXIN 0.125 MG TAB PO SCH (20:32)
[2019-04-24] MEDS: **NOTE PATIENT COMMENT** MISC XX SCH (20:34)
[2019-04-24 22:00] VITALS: BP 154/70
[2019-04-25] MEDS: traMADol 50 MG TAB PO PRN ×3 (04:52→21:17)
[2019-04-25 05:54] LABS: BASO # 0.1 10^3/uL (0.0-0.2); EOS # 0.4 10^3/uL (0.0-0.50); EOS % 4.4 % (0.0-3.0); HEMATOCRIT 36.2 % (36.0-47.0); HEMOGLOBIN 12.2 g/dl (12.0-15.5); LYMPH # 1.7 10^3/uL (1.5-4.5); LYMPH % 20.2 % (24.0-44.0); MEAN CORPUSCULAR HEMOGLOBIN 35.2 pg (27.0-33.0); MEAN CORPUSCULAR HGB CONC 33.7 g/dl (32.0-36.5); MEAN CORPUSCULAR VOLUME 104.3 fl (80.0-96.0); MONO # 0.9 10^3/uL (0.0-0.8); MONO % 10.7 % (0.0-5.0); NEUTROPHILS # 5.2 10^3/uL (1.8-7.7); NEUTROPHILS % 63.3 % (36.0-66.0); PLATELET COUNT, AUTOMATED 247 10^3/uL (150-450); RED BLOOD COUNT 3.47 10^6/uL (4.00-5.40); WHITE BLOOD COUNT 8.2 10^3/uL (4.0-10.0)
[2019-04-25 06:00] VITALS: BP 148/67
[2019-04-25 06:16] LABS: BLOOD UREA NITROGEN 7 MG/DL (7-18); C REACTIVE PROTEIN QUANTITATIV 4.16 MG/DL (0.00-0.30); CALCIUM LEVEL 8.7 MG/DL (8.8-10.2); CARBON DIOXIDE LEVEL 30 MEQ/L (21-32); CHLORIDE LEVEL 105 MEQ/L (98-107); CREATININE FOR GFR 0.56 MG/DL (0.55-1.30); GLOMERULAR FILTRATION RATE > 60.0 (>32); GLUCOSE, FASTING 94 MG/DL (70-100); MAGNESIUM LEVEL 2.2 MG/DL (1.8-2.4); POTASSIUM SERUM 3.4 MEQ/L (3.5-5.1); SODIUM LEVEL 140 MEQ/L (136-145)
[2019-04-25] MEDS ORDERED: POTASSIUM CHLORIDE 10 MEQ SR TABLET PO ONE (07:15)
[2019-04-25] MEDS: LIDOCAINE 5% (LIDODERM) PATCH TD SCH (08:26)
[2019-04-25] MEDS: VITAMIN D 1,000 INTERNATIONAL UNITS TABLET PO SCH (08:26)
--- NOTE | 2019-04-25 12:45 | IPNPDOC ---
Text Note Date of Service The patient was seen on 04/25/19. NOTE Subjective: Patient is an 88-year-old female with a PMHx of Paroxysmal A. 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 Patients family has noted that she has been experiencing frequent urinary tract infections. As an outpatient she continues to use intermittent catheterizations performed by a visiting nurse. Patients family have reported that she gets catheterized every 2 days. Over the last 4 days shes been catheterized daily with output ranging from 650-7 50 mL and today with an output of 1200 mL. I have advised the family that she should have an indwelling Lubin catheter placed. However, family does not 1 to pursue this option at this time. Patient was admitted to hospitalist service for suspected urinary tract infection. Patient was seen and examined at the bedside. Patient denies chest pain, shortness of breath or palpitations. Patient has been working with physical therapy and was out of bed and ambulating within the room with a walker. She'll continue physical therapy and try stairs today. She denies nausea, vomiting, abdominal pain or any diarrhea. Objective: Vitals (See below) General: Lying in bed, no acute distress, comfortable, AAOx3 HEENT: NC, AT CVS: RRR, +S1S2 Lungs: Fair air entry b/l, auscultation is without rhonchi, rales or wheezing Abdomen: Soft, nondistended and nontender Extremities: No evidence of lower extremity edema, - Calf tenderness Assessment and plan: Generalized weakness - possibly 2/2 infectious etiology - likely 2/2 UTI, less likely 2/2 neurologic etiology - Patient has reported generalized weakness for 1 day duration - Imaging via CT lumbar spine is essentially unchanged compared to CT from 12/03/2018 - Imaging via CT abdomen and pelvis does reveal an nonobstructive calculus in the left renal upper pole with moderate left hydroureteronephrosis - As an outpatient it seems the patient does not receive an adequate frequency of catheterizations, which increases her risk of developing a urinary tract infection - Discussed with family about indwelling Lubin catheter; they would like to avoid this moving forward - Review of prior urinary tract infections. 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 We will bladder scan her every 6 hours and straight cath for volume greater than 350 Severe lumbar spinal stenosis - Will continue with pain control as above DVT prophylaxis - c/w NIKO/Sequentials Disposition: - Awaiting PT clearance - Attempting to establish terminologist solution for urinary retention to avoid further UTIs VS,Krystyna, I+O VS, Krystyna, I+O Laboratory Tests 04/25/19 05:40 Red Blood Count 3.47 L, Mean Corpuscular Volume 104.3 H, Mean Corpuscular Hemoglobin 35.2 H, Mean Corpuscular Hemoglobin Concent 33.7, Red Cell Dis tribution Width 12.5, Neutrophils (%) (Auto) 63.3, Lymphocytes (%) (Auto) 20.2 L, Monocytes (%) (Auto) 10.7 H, Eosinophils (%) (Auto) 4.4 H, Basophils (%) (Auto) 1.0, Neutrophils # (Auto) 5.2, Lymphocytes # (Auto) 1.7, Monocytes # (Auto) 0.9 H, Eosinophils # (Auto) 0.4, Basophils # (Auto) 0.1, Calcium Level 8.7 L Vital Signs Date Time Temp Pulse Resp B/P (MAP) Pulse Ox O2 Delivery O2 Flow Rate FiO2 04/25/19 06:00 96.8 69 18 148/67 (94) 96 04/23/19 17:33 Room Air I&O- Last 24 Hours up to 6 AM 04/25/19 06:00 Intake Total 2030 ml Output Total 3850 ml Balance -1820 ml JUDI CORTÉS MD Apr 25, 2019 12:45
[2019-04-25] MEDS: LevoFLOXacin 750 MG TABLET PO SCH (12:58)
[2019-04-25] MEDS: DOCUSATE SODIUM 100 MG CAP PO SCH ×2 (12:59→21:13)
[2019-04-25] MEDS: METAMUCIL (PSYLLIUM) PACKET PO SCH (13:00)
[2019-04-25 14:00] VITALS: BP 145/80
--- NOTE | 2019-04-25 15:01 | REP ---
CT brain without contrast: History: Headache. Recent subarachnoid hemorrhage. Comparison brain CT study on April 14, 2019. CT findings: Preliminary digital swim instructor radiograph is unremarkable. No bony calvarial lesion is appreciated. The visualized paranasal sinuses are clear. No intraorbital abnormality is seen. There is moderate generalized atrophy above and below the tentorium. Small vessel atherosclerotic changes are seen in the periventricular white matter extensively and bilaterally. This is unchanged. There is no evidence of intracranial hemorrhage today. No extra-axial fluid collection is seen. No mass, infarction, or midline shift is observed. No evidence of remaining intraventricular hemorrhage is seen. Ventricle size is unchanged. Impression: The previously noted subarachnoid blood is no longer apparent. No new hemorrhage is seen. No acute intracranial abnormality. Electronically Signed by Bob Wheeler MD 04/25/2019 04:52 P
[2019-04-25] MEDS: DIGOXIN 0.125 MG TAB PO SCH (21:15)
[2019-04-25] MEDS: BISOPROLOL FUMARATE 5 MG TAB PO SCH (21:16)
[2019-04-25] MEDS: LATANOPROST 0.005% OPHTH SOLN 2.5 ML OU SCH (21:17)
[2019-04-25] MEDS: **NOTE PATIENT COMMENT** MISC XX SCH (21:18)
[2019-04-25 22:00] VITALS: BP 114/71
[2019-04-26 06:00] VITALS: BP 131/69
[2019-04-26 06:21] LABS: BASO # 0.1 10^3/uL (0.0-0.2); EOS # 0.4 10^3/uL (0.0-0.50); EOS % 4.9 % (0.0-3.0); HEMATOCRIT 35.7 % (36.0-47.0); HEMOGLOBIN 11.8 g/dl (12.0-15.5); LYMPH # 2.5 10^3/uL (1.5-4.5); LYMPH % 32.5 % (24.0-44.0); MEAN CORPUSCULAR HEMOGLOBIN 34.2 pg (27.0-33.0); MEAN CORPUSCULAR HGB CONC 33.1 g/dl (32.0-36.5); MEAN CORPUSCULAR VOLUME 103.5 fl (80.0-96.0); MONO % 13.4 % (0.0-5.0); NEUTROPHILS # 3.7 10^3/uL (1.8-7.7); NEUTROPHILS % 47.8 % (36.0-66.0); PLATELET COUNT, AUTOMATED 270 10^3/uL (150-450); RED BLOOD COUNT 3.45 10^6/uL (4.00-5.40); WHITE BLOOD COUNT 7.8 10^3/uL (4.0-10.0)
[2019-04-26 06:44] LABS: BLOOD UREA NITROGEN 10 MG/DL (7-18); C REACTIVE PROTEIN QUANTITATIV 2.31 MG/DL (0.00-0.30); CALCIUM LEVEL 8.7 MG/DL (8.8-10.2); CARBON DIOXIDE LEVEL 30 MEQ/L (21-32); CHLORIDE LEVEL 106 MEQ/L (98-107); CREATININE FOR GFR 0.75 MG/DL (0.55-1.30); GLOMERULAR FILTRATION RATE > 60.0 (>32); GLUCOSE, FASTING 91 MG/DL (70-100); MAGNESIUM LEVEL 2.3 MG/DL (1.8-2.4); POTASSIUM SERUM 4.4 MEQ/L (3.5-5.1); SODIUM LEVEL 140 MEQ/L (136-145)
[2019-04-26] MEDS: METAMUCIL (PSYLLIUM) PACKET PO SCH (09:55)
[2019-04-26] MEDS: DOCUSATE SODIUM 100 MG CAP PO SCH ×2 (09:55→20:48)
[2019-04-26] MEDS: VITAMIN D 1,000 INTERNATIONAL UNITS TABLET PO SCH (09:55)
[2019-04-26] MEDS: LIDOCAINE 5% (LIDODERM) PATCH TD SCH (09:56)
[2019-04-26] MEDS: traMADol 50 MG TAB PO PRN ×2 (10:17→17:58)
[2019-04-26] MEDS: ACETAMINOPHEN TAB 650MG DOSE (2X325MG) PO PRN ×2 (10:17→17:58)
[2019-04-26] MEDS ORDERED: LEVA750T7 PO (11:01)
--- NOTE | 2019-04-26 12:33 | IPNPDOC ---
Text Note Date of Service The patient was seen on 04/26/19. NOTE Subjective: Patient is an 88-year-old female with a PMHx of Paroxysmal A. 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 Patients family has noted that she has been experiencing frequent urinary tract infections. As an outpatient she continues to use intermittent catheterizations performed by a visiting nurse. Patients family have reported that she gets catheterized every 2 days. Over the last 4 days shes been catheterized daily with output ranging from 650-7 50 mL and today with an output of 1200 mL. I have advised the family that she should have an indwelling Lubin catheter placed. However, family does not 1 to pursue this option at this time. Patient was admitted to hospitalist service for suspected urinary tract infection. Patient was seen and examined at the bedside. Currently patient reports that she is not expressing any chest pain, shortness breath, palpitations. Patient denies nausea, vomiting, abdominal pain. She continues to receive frequent intermittent catheterizations. Patient has work with physical therapy, she is only clear to go home with stretcher / ambulance. Again elevated, and extensive discussion about the need for frequent int ermittent catheterizations or an indwelling Lubin catheter. Discussed with patient and both daughters; currently, they're against the idea of an indwelling Lubin catheter and have reported that they will continue with intermittent catheterizations. I stressed the importance of increasing the frequency of catheterizations to at least 3 times a day; they reported that they will try to achieve this. Objective: Vitals (See below) General: Lying in bed, no acute distress, comfortable, AAOx3 HEENT: NC, AT CVS: RRR, +S1S2 Lungs: Fair air entry b/l, no appreciable rhonchi, rales or wheezing Abdomen: Remains soft without distention or tenderness Extremities: No evidence of lower extremity edema, - Calf tenderness Assessment and plan: Generalized weakness - possibly 2/2 infectious etiology - likely 2/2 UTI, less likely 2/2 neurologic etiology - Patient has reported generalized weakness for 1 day duration - Imaging via CT lumbar spine is essentially unchanged compared to CT from 12/03/2018 - Imaging via CT abdomen and pelvis does reveal an nonobstructive calculus in the left renal upper pole with moderate left hydroureteronephrosis - As an outpatient it seems the patient does not receive an adequate frequency of catheterizations, which increases her risk of developing a urinary tract infection - Discussed with family about indwelling Lubin catheter; they would like to avoid this moving forward - Review of prior urinary tract infections. 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 No new hemorrhage is seen. No acute intracranial abnormality. - Has been discontinued off anticoagulation Paroxysmal A. 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 We will bladder scan her every 6 hours and straight cath for volume greater than 350 Severe lumbar spinal stenosis - Will continue with pain control as above DVT prophylaxis - c/w NIKO/Sequentials Disposition: - Will continue with physical therapy until patient is cleared for safe discharge home - Patient's family do not want to take her to a subacute rehabilitation center - Family has reported that they will continue with intermittent catheterizations at the recommended frequency of at least 3 times a day VSNje, I+O VS, Fishbone, I+O Laboratory Tests 04/26/19 05:43 Red Blood Count 3.45 L, Mean Corpuscular Volume 103.5 H, Mean Corpuscular Hemoglobin 34.2 H, Mean Corpuscular Hemoglobin Concent 33.1, Red Cell Distribution Width 12.7, Neutrophils (%) (Auto) 47.8, Lymphocytes (%) (Auto) 3 2.5, Monocytes (%) (Auto) 13.4 H, Eosinophils (%) (Auto) 4.9 H, Basophils (%) (Auto) 1.0, Neutrophils # (Auto) 3.7, Lymphocytes # (Auto) 2.5, Monocytes # (Auto) 1.0 H, Eosinophils # (Auto) 0.4, Basophils # (Auto) 0.1, Calcium Level 8.7 L Vital Signs Date Time Temp Pulse Resp B/P (MAP) Pulse Ox O2 Delivery O2 Flow Rate FiO2 04/26/19 10:47 16 04/26/19 10:17 97.4 70 131/69 96 04/23/19 17:33 Room Air I&O- Last 24 Hours up to 6 AM 04/26/19 06:00 Intake Total 450 ml Output Total 2550 ml Balance -2100 ml JUDI CORTÉS MD Apr 26, 2019 12:33
[2019-04-26 14:00] VITALS: BP 133/69
[2019-04-26] MEDS: BISOPROLOL FUMARATE 5 MG TAB PO SCH (20:47)
[2019-04-26] MEDS: **NOTE PATIENT COMMENT** MISC XX SCH (20:48)
[2019-04-26] MEDS: DIGOXIN 0.125 MG TAB PO SCH (20:48)
[2019-04-26] MEDS: LATANOPROST 0.005% OPHTH SOLN 2.5 ML OU SCH (20:48)
[2019-04-26 22:00] VITALS: BP 144/66
[2019-04-27] MEDS: LevoFLOXacin 750 MG TABLET PO SCH (06:16)
[2019-04-27 06:26] LABS: BASO # 0.1 10^3/uL (0.0-0.2); EOS # 0.4 10^3/uL (0.0-0.50); EOS % 4.7 % (0.0-3.0); HEMATOCRIT 36.7 % (36.0-47.0); HEMOGLOBIN 12.1 g/dl (12.0-15.5); LYMPH # 2.6 10^3/uL (1.5-4.5); LYMPH % 33.3 % (24.0-44.0); MEAN CORPUSCULAR HEMOGLOBIN 33.8 pg (27.0-33.0); MEAN CORPUSCULAR VOLUME 102.5 fl (80.0-96.0); MONO # 0.9 10^3/uL (0.0-0.8); MONO % 10.8 % (0.0-5.0); NEUTROPHILS % 49.8 % (36.0-66.0); PLATELET COUNT, AUTOMATED 286 10^3/uL (150-450); RED BLOOD COUNT 3.58 10^6/uL (4.00-5.40); WHITE BLOOD COUNT 7.9 10^3/uL (4.0-10.0)
[2019-04-27 06:42] LABS: BLOOD UREA NITROGEN 11 MG/DL (7-18); C REACTIVE PROTEIN QUANTITATIV 1.88 MG/DL (0.00-0.30); CALCIUM LEVEL 8.8 MG/DL (8.8-10.2); CARBON DIOXIDE LEVEL 28 MEQ/L (21-32); CHLORIDE LEVEL 105 MEQ/L (98-107); CREATININE FOR GFR 0.72 MG/DL (0.55-1.30); GLOMERULAR FILTRATION RATE > 60.0 (>32); GLUCOSE, FASTING 106 MG/DL (70-100); MAGNESIUM LEVEL 2.2 MG/DL (1.8-2.4); SODIUM LEVEL 141 MEQ/L (136-145)
[2019-04-27] MEDS: LIDOCAINE 5% (LIDODERM) PATCH TD SCH (08:29)
[2019-04-27] MEDS: METAMUCIL (PSYLLIUM) PACKET PO SCH (08:29)
[2019-04-27] MEDS: ACETAMINOPHEN TAB 650MG DOSE (2X325MG) PO PRN ×2 (08:30→16:59)
[2019-04-27] MEDS: traMADol 50 MG TAB PO PRN ×2 (08:30→16:59)
[2019-04-27] MEDS: VITAMIN D 1,000 INTERNATIONAL UNITS TABLET PO SCH (08:31)
[2019-04-27] MEDS: DOCUSATE SODIUM 100 MG CAP PO SCH ×2 (08:31→21:30)
[2019-04-27] MEDS ORDERED: MOM 30ML SUSPENSION UDC PO PRN (12:00)
[2019-04-27] MEDS ORDERED: SIMETHICONE 80 MG CHEW TAB PO PRN (12:00)
--- NOTE | 2019-04-27 12:04 | IPNPDOC ---
Text Note Date of Service The patient was seen on 04/27/19. NOTE Subjective: Patient is an 88-year-old female with a PMHx of Paroxysmal A. 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 Patients family has noted that she has been experiencing frequent urinary tract infections. As an outpatient she continues to use intermittent catheterizations performed by a visiting nurse. Patients family have reported that she gets catheterized every 2 days. Over the last 4 days shes been catheterized daily with output ranging from 650-7 50 mL and today with an output of 1200 mL. I have advised the family that she should have an indwelling Lubin catheter placed. However, family does not 1 to pursue this option at this time. Patient was admitted to hospitalist service for suspected urinary tract infection. Patient was seen and examined at the bedside. Patient's daughter, Shannon, healthcare proxy, was present at the bedside. I discussed with the patient and daughter the need for frequent catheterizations and they have expressed unders tanding and have again refused to have an indwelling Lubin catheter placed. . Currently, patient reports an uneventful night. Reports some abdominal discomfort/gas. Denies nausea, vomiting. Does report some constipation. Denies any discomfort with urination, however, does require catheterizations. Denies chest pain, shortness of breath or palpitations. Objective: Vitals (See below) General: Lying in bed, no acute distress, comfortable, AAOx3 HEENT: NC, AT CVS: RRR, +S1S2 Lungs: Fair air entry b/l, auscultations without rales, wheezing or rhonchi Abdomen: Again abdomen is soft without distention or tenderness Extremities: No edema is appreciated at her lower extremities, - Calf tenderness Assessment and plan: Generalized weakness - possibly 2/2 infectious etiology - likely 2/2 UTI - likely 2/2 infrequent urinary catheterizations, unlikely 2/2 neurologic etiology - Clinically has improved - Imaging via CT lumbar spine is essentially unchanged compared to CT from 12/03/2018 - Imaging via CT abdomen and pelvis does reveal an nonobstructive calculus in the left renal upper pole with moderate left hydroureteronephrosis - CRP continues to normalize - Urine analysis is consistent with infection; Urine cultures 04/23: Pseudomonas aeruginosa - c/w Levaquin; s/p cefepime (Antibiotic day #5); s/p IV fluid hydration Urinary retention - Reports infrequent intermittent catheterization completed as an outpatient every other day - While inpatient; c/w bladder scan her every 6 hours and straight cath for volume greater than 350 - I reiterated the importance of frequent catheterizations with the patient and the healthcare proxy, Shannon - Currently, Family and patient are refused indwelling Lubin catheter and have requested to continue to follow-up with gynecology, Dr. Marques as an outpatient Recent history of intracranial bleed - Patient has presented after a fall on 04/03 and was found to have subarachnoid bleed - Was transferred to [facility] in [place] for observation with Neurosurgery - Patient has had follow-up imaging on 04/21/2019 that had shown stability - CT head 04/25: The previously noted subarachnoid blood is no longer apparent. No new hemorrhage is seen. No acute intracranial abnormality. - Has been discontinued off anticoagulation Paroxysmal A. 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) DLP - Currently not on any medications Allergic rhinitis - Currently not on any medications Glaucoma - Continue with eye drops Severe lumbar spinal stenosis - s/p Morphine - Resume Tramadol DVT prophylaxis - c/w NIKO/Sequentials Disposition: - Will continue with physical therapy until patient is cleared for safe discharge home - Patient's family do not want to take her to a subacute rehabilitation center - Family has reported that they will continue with intermittent catheterizations at the recommended frequency of at least 3 times a day VS,Fishbone, I+O VS, Fishbone, I+O Laboratory Tests 04/27/19 06:01 Red Blood Count 3.58 L, Mean Corpuscular Volume 102.5 H, Mean Corpuscular Hemoglobin 33.8 H, Mean Corpuscular Hemoglobin Concent 33.0, Red Cell Distribution Width 12.4, Neutrophils (%) (Auto) 49.8, Lymphocytes (%) (Auto) 33.3, Monocytes (%) (Auto) 10.8 H, Eosinophils (%) (Auto) 4.7 H, Basophils (%) (Auto) 1.0, Neutrophils # (Auto) 4.0, Lymphocytes # (Auto) 2.6, Monocytes # (Auto) 0.9 H, Eosinophils # (Auto) 0.4, Basophils # (Auto) 0.1, Calcium Level 8.8 Vital Signs Date Time Temp Pulse Resp B/P (MAP) Pulse Ox O2 Delivery O2 Flow Rate FiO2 04/27/19 08:30 97.6 70 14 144/66 96 04/23/19 17:33 Room Air I&O- Last 24 Hours up to 6 AM 04/27/19 05:59 Intake Total 440 ml Output Total 350 ml Balance 90 ml JUDI CORTÉS MD Apr 27, 2019 12:03
[2019-04-27 14:00] VITALS: BP 125/62
[2019-04-27] MEDS: BISOPROLOL FUMARATE 5 MG TAB PO SCH (21:30)
[2019-04-27] MEDS: LATANOPROST 0.005% OPHTH SOLN 2.5 ML OU SCH (21:30)
[2019-04-27] MEDS: **NOTE PATIENT COMMENT** MISC XX SCH (21:30)
[2019-04-27] MEDS: DIGOXIN 0.125 MG TAB PO SCH (21:30)
[2019-04-27 22:00] VITALS: BP 132/74
[2019-04-27] MEDS: MIRALAX *UNIT DOSE* 17GM PACKET PO PRN (23:26)
[2019-04-28 06:00] VITALS: BP 146/81
[2019-04-28 06:44] LABS: BASO # 0.1 10^3/uL (0.0-0.2); BASO % 0.9 % (0.0-1.0); EOS # 0.4 10^3/uL (0.0-0.50); EOS % 4.5 % (0.0-3.0); HEMATOCRIT 37.8 % (36.0-47.0); HEMOGLOBIN 12.4 g/dl (12.0-15.5); LYMPH # 2.6 10^3/uL (1.5-4.5); LYMPH % 31.7 % (24.0-44.0); MEAN CORPUSCULAR HEMOGLOBIN 33.4 pg (27.0-33.0); MEAN CORPUSCULAR HGB CONC 32.8 g/dl (32.0-36.5); MEAN CORPUSCULAR VOLUME 101.9 fl (80.0-96.0); MONO # 0.9 10^3/uL (0.0-0.8); MONO % 10.8 % (0.0-5.0); NEUTROPHILS # 4.2 10^3/uL (1.8-7.7); NEUTROPHILS % 51.5 % (36.0-66.0); PLATELET COUNT, AUTOMATED 288 10^3/uL (150-450); RED BLOOD COUNT 3.71 10^6/uL (4.00-5.40); WHITE BLOOD COUNT 8.2 10^3/uL (4.0-10.0)
[2019-04-28 07:09] LABS: BLOOD UREA NITROGEN 10 MG/DL (7-18); C REACTIVE PROTEIN QUANTITATIV 1.17 MG/DL (0.00-0.30); CALCIUM LEVEL 8.9 MG/DL (8.8-10.2); CARBON DIOXIDE LEVEL 30 MEQ/L (21-32); CHLORIDE LEVEL 105 MEQ/L (98-107); CREATININE FOR GFR 0.64 MG/DL (0.55-1.30); GLOMERULAR FILTRATION RATE > 60.0 (>32); GLUCOSE, FASTING 96 MG/DL (70-100); MAGNESIUM LEVEL 2.1 MG/DL (1.8-2.4); POTASSIUM SERUM 3.7 MEQ/L (3.5-5.1); SODIUM LEVEL 140 MEQ/L (136-145)
[2019-04-28] MEDS: DOCUSATE SODIUM 100 MG CAP PO SCH ×2 (08:30→20:31)
[2019-04-28] MEDS: VITAMIN D 1,000 INTERNATIONAL UNITS TABLET PO SCH (08:30)
[2019-04-28] MEDS: traMADol 50 MG TAB PO PRN ×2 (08:32→15:12)
[2019-04-28] MEDS: METAMUCIL (PSYLLIUM) PACKET PO SCH (08:32)
[2019-04-28] MEDS: MIRALAX *UNIT DOSE* 17GM PACKET PO PRN (08:32)
[2019-04-28] MEDS: LIDOCAINE 5% (LIDODERM) PATCH TD SCH (08:33)
[2019-04-28 14:00] VITALS: BP 116/62
--- NOTE | 2019-04-28 15:10 | IPNPDOC ---
Text Note Date of Service The patient was seen on 04/28/19. NOTE Subjective: Patient is an 88-year-old female with a PMHx of Paroxysmal A. 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 Patients family has noted that she has been experiencing frequent urinary tract infections. As an outpatient she continues to use intermittent catheterizations performed by a visiting nurse. Patients family have reported that she gets catheterized every 2 days. Over the last 4 days shes been catheterized daily with output ranging from 650-7 50 mL and today with an output of 1200 mL. I have advised the family that she should have an indwelling Lubin catheter placed. However, family does not 1 to pursue this option at this time. Patient was admitted to hospitalist service for suspected urinary tract infection. Patient was seen and examined at the bedside. Currently patient has no new complaints. She has worked with physical therapy and has been cleared for discharge home. I discussed with the healthcare proxy, Shannon. I have advised her that her mother has cleared physical therapy and is been medically cleared for discharge home. Healthcare proxy is indicated that she is not ready for her mother to go home today. Patient denies chest pain, shortness of breath, palpitations, nausea, vomiting, abdominal pain, diarrhea or discomfort with urination. Patient is experiencing constipation and is on a bowel regimen. Objective: Vitals (See below) General: Lying in bed, no acute distress, comfortable, AAOx3 HEENT: NC, AT CVS: RRR, +S1S2 Lungs: Fair air entry b/l, no evidence of rhonchi, rales or wheezing Abdomen: Remains soft without distention or tenderness Extremities: Lower extremities are free of any edema, - Calf tenderness Assessment and plan: Generalized weakness - possibly 2/2 infectious etiology - likely 2/2 UTI - likely 2/2 infrequent urinary catheterizations, unlikely 2/2 neurologic etiology - Clinically has improved - Imaging via CT lumbar spine is essentially unchanged compared to CT from 12/03/2018 - Imaging via CT abdomen and pelvis does reveal an nonobstructive calculus in the left renal upper pole with moderate left hydroureteronephrosis - CRP continues to normalize - Urine analysis is consistent with infection; Urine cultures 04/23: Pseudomonas aeruginosa - c/w Levaquin; s/p cefepime (Antibiotic day #6); s/p IV fluid hydration Urinary retention - Reports infrequent intermittent catheterization completed as an outpatient every other day - While inpatient; c/w bladder scan her every 6 hours and straight cath for volume greater than 350 - Although usually intermittent catheterizations are a better modality instead of an indwelling Lubin catheter to prevent infections; this is based on the assumption that intermittent catheterizations are done appropriately, at the correct interval - this is however not the case in her current home situation - I reiterated the importance of frequent catheterizations with the patient and the healthcare proxy, Shannon - Currently, Family and patient are refused indwelling Lubin catheter and have requested to continue to follow-up with gynecology, Dr. Marques as an outpatient Recent history of intracranial bleed - Patient has presented after a fall on 04/03 and was found to have subarachnoid bleed - Was transferred to [facility] in [place] for observation with Neurosurgery - Patient has had follow-up imaging on 04/21/2019 that had shown stability - CT head 04/25: The previously noted subarachnoid blood is no longer apparent. No new hemorrhage is seen. No acute intracranial abnormality. - Has been discontinued off anticoagulation Paroxysmal A. 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) DLP - Currently not on any medications Allergic rhinitis - Currently not on any medications Glaucoma - Continue with eye drops Severe lumbar spinal stenosis - s/p Morphine - c/w Tramadol DVT prophylaxis - c/w NIKO/Sequentials Disposition: - Discharge has been delayed; family is not ready to take patient home - Patient is medically cleared for discharge - Will transition the patient to [facility] VS,Fishbone, I+O VS, Fishbone, I+O Laboratory Tests 04/28/19 06:21 Red Blood Count 3.71 L, Mean Corpuscular Volume 101.9 H, Mean Corpuscular Hemoglobin 33.4 H, Mean Corpuscular Hemoglobin Concent 32.8, Red Cell Distribution Width 12.5, Neutrophils (%) (Auto) 51.5, Lymphocytes (%) (Auto) 31.7, Monocytes (%) (Auto) 10.8 H, Eosinophils (%) (Auto) 4.5 H, Basophils (%) (Auto) 0.9, Neutrophils # (Auto) 4.2, Lymphocytes # (Auto) 2.6, Monocytes # (Auto) 0.9 H, Eosinophils # (Auto) 0.4, Basophils # (Auto) 0.1, Calcium Level 8.9 Vital Signs Date Time Temp Pulse Resp B/P (MAP) Pulse Ox O2 Delivery O2 Flow Rate FiO2 04/28/19 09:02 18 04/28/19 06:00 98.4 69 146/81 (102) 98 04/23/19 17:33 Room Air I&O- Last 24 Hours up to 6 AM 04/28/19 06:00 Intake Total 490 ml Output Total 375 ml Balance 115 ml JUDI CORTÉS MD Apr 28, 2019 15:10
[2019-04-28] MEDS: DIGOXIN 0.125 MG TAB PO SCH (20:30)
[2019-04-28 20:31] VITALS: BP 118/68
[2019-04-28] MEDS: **NOTE PATIENT COMMENT** MISC XX SCH (20:31)
[2019-04-28] MEDS: LATANOPROST 0.005% OPHTH SOLN 2.5 ML OU SCH (20:31)
[2019-04-28] MEDS: BISOPROLOL FUMARATE 5 MG TAB PO SCH (20:31)
[2019-04-28 22:00] VITALS: BP 118/68
[2019-04-29] MEDS: LevoFLOXacin 750 MG TABLET PO SCH (05:37)
[2019-04-29 06:00] VITALS: BP 143/79
[2019-04-29 06:21] LABS: BASO # 0.1 10^3/uL (0.0-0.2); BASO % 1.2 % (0.0-1.0); EOS # 0.4 10^3/uL (0.0-0.50); EOS % 4.9 % (0.0-3.0); HEMATOCRIT 38.2 % (36.0-47.0); HEMOGLOBIN 12.7 g/dl (12.0-15.5); LYMPH # 3.2 10^3/uL (1.5-4.5); LYMPH % 39.2 % (24.0-44.0); MEAN CORPUSCULAR HEMOGLOBIN 34.9 pg (27.0-33.0); MEAN CORPUSCULAR HGB CONC 33.2 g/dl (32.0-36.5); MEAN CORPUSCULAR VOLUME 104.9 fl (80.0-96.0); MONO # 0.9 10^3/uL (0.0-0.8); MONO % 10.6 % (0.0-5.0); NEUTROPHILS # 3.6 10^3/uL (1.8-7.7); NEUTROPHILS % 43.9 % (36.0-66.0); PLATELET COUNT, AUTOMATED 295 10^3/uL (150-450); RED BLOOD COUNT 3.64 10^6/uL (4.00-5.40); WHITE BLOOD COUNT 8.2 10^3/uL (4.0-10.0)
[2019-04-29 06:46] LABS: BLOOD UREA NITROGEN 18 MG/DL (7-18); CALCIUM LEVEL 9.5 MG/DL (8.8-10.2); CARBON DIOXIDE LEVEL 31 MEQ/L (21-32); CHLORIDE LEVEL 107 MEQ/L (98-107); CREATININE FOR GFR 0.72 MG/DL (0.55-1.30); GLOMERULAR FILTRATION RATE > 60.0 (>32); GLUCOSE, FASTING 96 MG/DL (70-100); MAGNESIUM LEVEL 2.6 MG/DL (1.8-2.4); POTASSIUM SERUM 3.8 MEQ/L (3.5-5.1); SODIUM LEVEL 143 MEQ/L (136-145)
[2019-04-29] MEDS: LIDOCAINE 5% (LIDODERM) PATCH TD SCH (08:56)
[2019-04-29] MEDS: METAMUCIL (PSYLLIUM) PACKET PO SCH (08:56)
[2019-04-29] MEDS: DOCUSATE SODIUM 100 MG CAP PO SCH (08:56)
[2019-04-29] MEDS: VITAMIN D 1,000 INTERNATIONAL UNITS TABLET PO SCH (08:56)
[2019-04-29] MEDS: traMADol 50 MG TAB PO PRN (09:11)
--- NOTE | 2019-04-29 10:06 | DS.PDOC ---
Discharge Summary General Date of Admission Apr 23, 2019 at 14:59 Date of Discharge April 29, 2019 Discharge Summary DISCHARGE DIAGNOSES: Generalized weakness UTI due to catheterization Urinary retention with intermittent catheterization completed as an outpatient every other day Recent history of intracranial bleed Paroxysmal A. 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 Patients family has noted that she has been experiencing frequent urinary tract infections. As an outpatient she continues to use intermittent catheterizations performed by a visiting nurse. Patients family have reported that she gets catheterized every 2 days. Over the last 4 days shes been catheterized daily with output ranging from 650-7 50 mL and today with an output of 1200 mL. I have advised the family that she should have an indwelling Lubin catheter placed. However, family does not 1 to pursue this option at this time. Patient was admitted to hospitalist service for suspected urinary tract infection. Patient was seen and examined at the bedside. Currently patient has no new complaints. She has worked with physical therapy and has been cleared for discharge home. I discussed with the healthcare proxy, Shannon. I have advised her that her mother has cleared physical therapy and is been medically cleared for discharge home. Healthcare proxy is indicated that she is not ready for her mother to go home today. Patient denies chest pain, shortness of breath, palpitations, nausea, vomiting, abdominal pain, diarrhea or discomfort with urination. Patient is experiencing constipation and is on a bowel regimen. HOSPITAL COURSE: Generalized weakness - possibly 2/2 infectious etiology - likely 2/2 UTI - likely 2/2 infrequent urinary catheterizations, unlikely 2/2 neurologic etiology - Clinically has improved - Imaging via CT lumbar spine is essentially unchanged compared to CT from 12/03/2018 - Imaging via CT abdomen and pelvis does reveal an nonobstructive calculus in the left renal upper pole with moderate left hydroureteronephrosis - CRP continues to normalize - Urine analysis is consistent with infection; Urine cultures 04/23: Pseudomonas aeruginosa - c/w Levaquin; s/p cefepime (Antibiotic day #6); s/p IV fluid hydration Urinary retention - Reports infrequent intermittent catheterization completed as an outpatient every other day - While inpatient; c/w bladder scan her every 6 hours and straight cath for volume greater than 350 - Although usually intermittent catheterizations are a better modality instead of an indwelling Lubin catheter to prevent infections; this is based on the assumption that intermittent catheterizations are done appropriately, at the correct interval - this is however not the case in her current home situation - I reiterated the importance of frequent catheterizations with the patient and the healthcare proxy, Shannon - Currently, Family and patient are refused indwelling Lubin catheter and have requested to continue to follow-up with gynecology, Dr. Marques as an outpatient Recent history of intracranial bleed - Patient has presented after a fall on 04/03 and was found to have subarachnoid bleed - Was transferred to [facility] in [place] for observation with Neurosurgery - Patient has had follow-up imaging on 04/21/2019 that had shown stability - CT head 04/25: The previously noted subarachnoid blood is no longer apparent. No new hemorrhage is seen. No acute intracranial abnormality. - Has been discontinued off anticoagulation Paroxysmal A. 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 has 24/7care at home. DISCHARGE PHYSICAL EXAMINATION Vitals (See below) General: Lying in bed, no acute distress, comfortable, AAOx3 HEENT: NC, AT CVS: RRR, +S1S2 Lungs: Fair air entry b/l, no evidence of rhonchi, rales or wheezing Abdomen: Remains soft without distention or tenderness Extremities: Lower extremities are free of any edema, - Calf tenderness LABORATORY DATA, IMAGING STUDIES, MICROBIOLOGY: PLS SEE BELOW TIME SPENT ON DISCHARGE: 32MIN Vital Signs/I&Os Vital Signs Date Time Temp Pulse Resp B/P (MAP) Pulse Ox O2 Delivery O2 Flow Rate FiO2 04/29/19 09:11 18 04/29/19 06:00 97.2 71 143/79 (100) 97 04/23/19 17:33 Room Air I&O- Last 24 Hours up to 6 AM 04/29/19 06:00 Intake Total 1300 ml Output Total 400 ml Balance 900 ml Laboratory Data Labs 24H Laboratory Tests 2 04/29/19 05:38: Immature Granulocyte % (Auto) 0.2, White Blood Count 8.2, Red Blood Count 3.64L, Hemoglobin 12.7, Hematocrit 38.2, Mean Corpuscular Volume 104.9H, Mean Corpuscular Hemoglobin 34.9H, Mean Corpuscular Hemoglobin Concent 33.2, Red Cell Distribution Width 12.8, Platelet Count 295, Neutrophils (%) (Auto) 43.9, Lymphocytes (%) (Auto) 39.2, Monocytes (%) (Auto) 10.6H, Eosinophils (%) (Auto) 4.9H, Basophils (%) (Auto) 1.2H, Neutrophils # (Auto) 3.6, Lymphocytes # (Auto) 3.2, Monocytes # (Auto) 0.9H, Eosinophils # (Auto) 0.4, Basophils # (Auto) 0.1, Nucleated Red Blood Cells % (auto) 0.0, Anion Gap 5L, Glomerular Filtration Rate > 60.0, Blood Urea Nitrogen 18#, Creatinine 0.72, Sodium Level 143, Potassium Level 3.8, Chloride Level 107, Carbon Dioxide Level 31, Calcium Level 9.5, Magnesium Level 2.6H CBC/BMP Laboratory Tests 04/29/19 05:38 Red Blood Count 3.64 L, Mean Corpuscular Volume 104.9 H, Mean Corpuscular Hemoglobin 34.9 H, Mean Corpuscular Hemoglobin Concent 33.2, Red Cell Distribution Width 12.8, Neutrophils (%) (Auto) 43.9, Lymphocytes (%) (Auto) 39.2, Monocytes (%) (Auto) 10.6 H, Eosinophils (%) (Auto) 4.9 H, Basophils (%) (Auto) 1.2 H, Neutrophils # (Auto) 3.6, Lymphocytes # (Auto) 3.2, Monocytes # (Auto) 0.9 H, Eosinophils # (Auto) 0.4, Basophils # (Auto) 0.1, Calcium Level 9.5 Microbiology Microbiology 04/23/19 Blood Culture - Final, Complete NO GROWTH AFTER 5 DAYS 04/23/19 Blood Culture - Final, Complete NO GROWTH AFTER 5 DAYS 04/23/19 Urine Culture - Final, Complete Pseudomonas Aeruginosa Discharge Medications Scheduled Bimatoprost (Lumigan) 50 Drop/2.5 Ml Carmen, 1 DROP OU DAILY, (Reported) Bisoprolol Fumarate (Bisoprolol Fumarate) 5 Mg Tablet, 5 MG PO QHS, (Reported) Cyanocobalamin (Vitamin B-12) (B-12) 500 Mcg Tablet, 500 MCG PO DAILY, (Reported) Digoxin (Digoxin) 125 Mcg Tablet, 125 MCG PO QHS, (Reported) Estradiol (Vagifem) 10 Mcg Tab, 1 DOSE PV QHS, (Reported) APPLY TO FINGERTIP Levofloxacin (Levaquin) 750 Mg Tablet, 750 MG PO Q48H Vitamin D (Vitamin D3) 1,000 Unit Tablet, 2,000 UNITS PO DAILY, (Reported) Scheduled PRN Acetaminophen (Tylenol) 325 Mg Tablet, 650 MG PO QID PRN for PAIN OR FEVER, (Reported) Lidocaine (Lidocaine) 5 % Pad, 1 PATCH TOP DAILY PRN for PAIN, (Reported) PATIENT CAN APPLY 1 OR 2 PATCHES TO BACK Nitroglycerin (Nitroglycerin) 0.4 Mg Tab.subl, 0.4 MG SL Q5MP PRN for CHEST PAIN , (Reported) Polyvinyl Alcohol (Artificial Tears) 15 Ml Drops, 1 DROP OU QID PRN for DRY EYES, (Reported) Spironolactone (Spironolactone) 25 Mg Tablet, 12.5 MG PO DAILY PRN for BLOOD PRESSURE, (Reported) takes if SBP>135 or DBP>85 Tramadol HCl (Tramadol HCl) 50 Mg Tab, 100 MG PO TID PRN for PAIN OR SHORTNESS OF BREATH, (Reported) Allergies Coded Allergies: Sulfa (Sulfonamide Antibiotics) (Verified Allergy, Intermediate, 03/09/19) PATRICK MIRELES MD Apr 29, 2019 09:30
== END 2019-04-29 13:32 | disposition home health service (06) | DRG 699 ==
LOC: M ED 10:19 → EDBD 10:19 → M ED INP 14:59 → M MSPAV 17:55
PROVIDERS: ADMIT Internal Medicine; ATTEND General Practice
DX: T83.518A Infection and inflammatory reaction due to other urinary catheter, initial encounter (principal); N39.0 Urinary tract infection, site not specified; I50.32 Chronic diastolic (congestive) heart failure; I48.0 Paroxysmal atrial fibrillation; I25.10 Atherosclerotic heart disease of native coronary artery without angina pectoris; Z95.2 Presence of prosthetic heart valve; H40.9 Unspecified glaucoma; J30.9 Allergic rhinitis, unspecified; R33.9 Retention of urine, unspecified; Z95.0 Presence of cardiac pacemaker; M48.061 Spinal stenosis, lumbar region without neurogenic claudication; Y84.6 Urinary catheterization as the cause of abnormal reaction of the patient, or of later complication, without mention of misadventure at the time of the procedure

== ENCOUNTER → 2019-05-12 | Outpatient (REF) | payer MEDICARE, OTHER ==
[~2019-05-12] MED LIST changes: +B-121TAB3 PO; +LEVA750T7 PO; +VITAD1000T PO
[2019-05-12 17:26] LABS: APPEARANCE, URINE TURBID (CLEAR); BACTERIA, URINE AUTO 3+ (NEGATIVE); BILIRUBIN, URINE AUTO NEGATIVE (NEGATIVE); BLOOD, URINE BLOOD 1+ (NEGATIVE); COLOR, URINE YELLOW (YELLOW); GLUCOSE, URINE (UA) AUTO NEGATIVE (NEGATIVE); KETONE, URINE AUTO NEGATIVE (NEGATIVE); LEUKOCYTE ESTERASE, URINE AUTO 3+ (NEGATIVE); MUCUS, URINE SMALL (NEGATIVE); NITRITE, URINE AUTO NEGATIVE (NEGATIVE); PROTEIN, URINE AUTO 2+ mg/dL (NEGATIVE); RBC, URINE AUTO 31 /HPF (0-3); SPECIFIC GRAVITY URINE AUTO 1.012 (1.002-1.035); SQUAMOUS EPITHELIAL CELL UR AU 3 /HPF (0-6); UROBILINOGEN, URINE AUTO 0.2 mg/dL (0.0-2.0); WBC, URINE AUTO TNTC /HPF (0-3)
== END ==
LOC: M LAB REF 16:22
PROVIDERS: ATTEND Obstetrics & Gynecology
DX: R33.9 Retention of urine, unspecified (principal); N32.81 Overactive bladder; N39.0 Urinary tract infection, site not specified

== ENCOUNTER → 2019-07-04 | Outpatient (REF) | payer MEDICARE, OTHER ==
[~2019-07-04] MED LIST changes: -ARTI99.0 OU; +ARTIDRO2 OU; -BISO5TAB5 PO; +BISO5TAB9 PO; +CHOL100029 PO; -VITAD1000T PO
[2019-07-04 19:11] LABS: APPEARANCE, URINE CLOUDY (CLEAR); BACTERIA, URINE AUTO NEGATIVE (NEGATIVE); BILIRUBIN, URINE AUTO NEGATIVE (NEGATIVE); BLOOD, URINE BLOOD 1+ (NEGATIVE); COLOR, URINE YELLOW (YELLOW); GLUCOSE, URINE (UA) AUTO NEGATIVE (NEGATIVE); KETONE, URINE AUTO NEGATIVE (NEGATIVE); LEUKOCYTE ESTERASE, URINE AUTO 2+ (NEGATIVE); MUCUS, URINE SMALL (NEGATIVE); NITRITE, URINE AUTO NEGATIVE (NEGATIVE); PROTEIN, URINE AUTO 1+ mg/dL (NEGATIVE); RBC, URINE AUTO 19 /HPF (0-3); SPECIFIC GRAVITY URINE AUTO 1.014 (1.002-1.035); SQUAMOUS EPITHELIAL CELL UR AU 2 /HPF (0-6); UROBILINOGEN, URINE AUTO 0.2 mg/dL (0.0-2.0); WBC, URINE AUTO TNTC /HPF (0-3)
== END ==
LOC: M LAB REF 17:11
PROVIDERS: ATTEND Obstetrics & Gynecology
DX: R33.9 Retention of urine, unspecified (principal); N39.0 Urinary tract infection, site not specified

== ENCOUNTER → 2019-07-30 | Outpatient (REF) | payer MEDICARE, OTHER ==
[2019-07-30 17:37] LABS: APPEARANCE, URINE CLOUDY (CLEAR); BACTERIA, URINE AUTO 2+ (NEGATIVE); BILIRUBIN, URINE AUTO NEGATIVE (NEGATIVE); BLOOD, URINE BLOOD NEGATIVE (NEGATIVE); COLOR, URINE YELLOW (YELLOW); GLUCOSE, URINE (UA) AUTO NEGATIVE (NEGATIVE); KETONE, URINE AUTO NEGATIVE (NEGATIVE); LEUKOCYTE ESTERASE, URINE AUTO 3+ (NEGATIVE); MUCUS, URINE SMALL (NEGATIVE); NITRITE, URINE AUTO NEGATIVE (NEGATIVE); PROTEIN, URINE AUTO 1+ mg/dL (NEGATIVE); RBC, URINE AUTO 5 /HPF (0-3); SPECIFIC GRAVITY URINE AUTO 1.019 (1.002-1.035); SQUAMOUS EPITHELIAL CELL UR AU 2 /HPF (0-6); UROBILINOGEN, URINE AUTO 0.2 mg/dL (0.0-2.0); WBC, URINE AUTO TNTC /HPF (0-3)
== END ==
LOC: M LAB REF 17:00
PROVIDERS: ATTEND Obstetrics & Gynecology
DX: R33.9 Retention of urine, unspecified (principal); N32.81 Overactive bladder

== ENCOUNTER → 2019-08-20 | Outpatient (REF) | payer MEDICARE, OTHER ==
[2019-08-20 17:34] LABS: APPEARANCE, URINE TURBID (CLEAR); BACTERIA, URINE AUTO 2+ (NEGATIVE); BILIRUBIN, URINE AUTO NEGATIVE (NEGATIVE); BLOOD, URINE BLOOD 1+ (NEGATIVE); COLOR, URINE YELLOW (YELLOW); GLUCOSE, URINE (UA) AUTO NEGATIVE (NEGATIVE); KETONE, URINE AUTO NEGATIVE (NEGATIVE); LEUKOCYTE ESTERASE, URINE AUTO 3+ (NEGATIVE); NITRITE, URINE AUTO NEGATIVE (NEGATIVE); PROTEIN, URINE AUTO 1+ mg/dL (NEGATIVE); RBC, URINE AUTO 29 /HPF (0-3); SPECIFIC GRAVITY URINE AUTO 1.011 (1.002-1.035); SQUAMOUS EPITHELIAL CELL UR AU 1 /HPF (0-6); UROBILINOGEN, URINE AUTO 0.2 mg/dL (0.0-2.0); WBC, URINE AUTO TNTC /HPF (0-3)
== END ==
LOC: M LAB REF 16:32
PROVIDERS: ATTEND Obstetrics & Gynecology
DX: N32.81 Overactive bladder (principal); R33.9 Retention of urine, unspecified; N39.41 Urge incontinence

== ENCOUNTER → 2019-09-10 | Outpatient (REF) | payer MEDICARE, OTHER ==
[2019-09-10 19:23] LABS: APPEARANCE, URINE TURBID (CLEAR); BACTERIA, URINE AUTO 1+ (NEGATIVE); BILIRUBIN, URINE AUTO NEGATIVE (NEGATIVE); BLOOD, URINE BLOOD 1+ (NEGATIVE); COLOR, URINE YELLOW (YELLOW); GLUCOSE, URINE (UA) AUTO NEGATIVE (NEGATIVE); KETONE, URINE AUTO NEGATIVE (NEGATIVE); LEUKOCYTE ESTERASE, URINE AUTO 3+ (NEGATIVE); NITRITE, URINE AUTO NEGATIVE (NEGATIVE); PROTEIN, URINE AUTO 1+ mg/dL (NEGATIVE); RBC, URINE AUTO 38 /HPF (0-3); SPECIFIC GRAVITY URINE AUTO 1.017 (1.002-1.035); SQUAMOUS EPITHELIAL CELL UR AU 0 /HPF (0-6); UROBILINOGEN, URINE AUTO 0.2 mg/dL (0.0-2.0); WBC, URINE AUTO TNTC /HPF (0-3)
== END ==
LOC: M LAB REF 17:16
PROVIDERS: ATTEND Obstetrics & Gynecology
DX: R33.9 Retention of urine, unspecified (principal); N32.81 Overactive bladder; N39.41 Urge incontinence

== ENCOUNTER → 2019-12-01 | Outpatient (REF) | payer MEDICARE, OTHER ==
[~2019-12-01] MED LIST changes: -ARTIDRO2 OU; +BISO5TAB14 PO; -BISO5TAB9 PO; -DIGO0.12 PO; +DIGO0.123 PO; +POLYOPD OU
[2019-12-01 18:25] LABS: APPEARANCE, URINE CLOUDY (CLEAR); BACTERIA, URINE AUTO 3+ (NEGATIVE); BILIRUBIN, URINE AUTO NEGATIVE (NEGATIVE); BLOOD, URINE BLOOD 1+ (NEGATIVE); COLOR, URINE YELLOW (YELLOW); GLUCOSE, URINE (UA) AUTO NEGATIVE (NEGATIVE); KETONE, URINE AUTO NEGATIVE (NEGATIVE); LEUKOCYTE ESTERASE, URINE AUTO 3+ (NEGATIVE); MUCUS, URINE SMALL (NEGATIVE); NITRITE, URINE AUTO NEGATIVE (NEGATIVE); PROTEIN, URINE AUTO 1+ mg/dL (NEGATIVE); RBC, URINE AUTO 47 /HPF (0-3); SPECIFIC GRAVITY URINE AUTO 1.016 (1.002-1.035); SQUAMOUS EPITHELIAL CELL UR AU 2 /HPF (0-6); UROBILINOGEN, URINE AUTO 0.2 mg/dL (0.0-2.0); WBC, URINE AUTO TNTC /HPF (0-3)
== END ==
LOC: M LAB REF 16:51
PROVIDERS: ATTEND Obstetrics & Gynecology
DX: R33.9 Retention of urine, unspecified (principal); N39.0 Urinary tract infection, site not specified

== ENCOUNTER → 2019-12-18 | Outpatient (REF) | payer MEDICARE, OTHER ==
[2019-12-18 19:27] LABS: APPEARANCE, URINE TURBID (CLEAR); BILIRUBIN, URINE AUTO NEGATIVE (NEGATIVE); BLOOD, URINE BLOOD 2+ (NEGATIVE); COLOR, URINE YELLOW (YELLOW); GLUCOSE, URINE (UA) AUTO NEGATIVE (NEGATIVE); KETONE, URINE AUTO NEGATIVE (NEGATIVE); LEUKOCYTE ESTERASE, URINE AUTO 3+ (NEGATIVE); NITRITE, URINE AUTO NEGATIVE (NEGATIVE); PROTEIN, URINE AUTO 2+ mg/dL (NEGATIVE); RBC, URINE AUTO 73 /HPF (0-3); SPECIFIC GRAVITY URINE AUTO 1.014 (1.002-1.035); UROBILINOGEN, URINE AUTO 0.2 mg/dL (0.0-2.0); WBC, URINE AUTO 2059 /HPF (0-3)
== END ==
LOC: M LAB REF 17:43
PROVIDERS: ATTEND Obstetrics & Gynecology
DX: N39.41 Urge incontinence (principal); N39.0 Urinary tract infection, site not specified; R33.9 Retention of urine, unspecified

== ENCOUNTER → 2020-03-08 | Outpatient (REF) | payer MEDICARE, OTHER ==
[~2020-03-08] MED LIST changes: -LISI-1046 PO; +LISI2.5T2 PO
[2020-03-08 17:28] LABS: APPEARANCE, URINE TURBID (CLEAR); BACTERIA, URINE AUTO NEGATIVE (NEGATIVE); BILIRUBIN, URINE AUTO NEGATIVE (NEGATIVE); BLOOD, URINE BLOOD 2+ (NEGATIVE); COLOR, URINE YELLOW (YELLOW); GLUCOSE, URINE (UA) AUTO NEGATIVE (NEGATIVE); KETONE, URINE AUTO NEGATIVE (NEGATIVE); LEUKOCYTE ESTERASE, URINE AUTO 3+ (NEGATIVE); NITRITE, URINE AUTO NEGATIVE (NEGATIVE); PROTEIN, URINE AUTO 1+ mg/dL (NEGATIVE); RBC, URINE AUTO 46 /HPF (0-3); SPECIFIC GRAVITY URINE AUTO 1.013 (1.002-1.035); SQUAMOUS EPITHELIAL CELL UR AU 2 /HPF (0-6); UROBILINOGEN, URINE AUTO 0.2 mg/dL (0.0-2.0); WBC, URINE AUTO TNTC /HPF (0-3)
== END ==
LOC: M LAB REF 16:29
PROVIDERS: ATTEND Obstetrics & Gynecology
DX: R33.9 Retention of urine, unspecified (principal)

== ENCOUNTER → 2020-04-19 | Outpatient (REF) | payer MEDICARE, OTHER ==
[~2020-04-19] MED LIST changes: +ACET650T61 PO; -AMIO200T PO; +AMIO200T3 PO; -TYLE650T35 PO
[2020-04-19 19:17] LABS: APPEARANCE, URINE TURBID (CLEAR); BACTERIA, URINE AUTO NEGATIVE (NEGATIVE); BILIRUBIN, URINE AUTO NEGATIVE (NEGATIVE); BLOOD, URINE BLOOD 2+ (NEGATIVE); COLOR, URINE YELLOW (YELLOW); GLUCOSE, URINE (UA) AUTO NEGATIVE (NEGATIVE); KETONE, URINE AUTO NEGATIVE (NEGATIVE); LEUKOCYTE ESTERASE, URINE AUTO 3+ (NEGATIVE); NITRITE, URINE AUTO NEGATIVE (NEGATIVE); PROTEIN, URINE AUTO 1+ mg/dL (NEGATIVE); RBC, URINE AUTO 22 /HPF (0-3); SPECIFIC GRAVITY URINE AUTO 1.008 (1.002-1.035); SQUAMOUS EPITHELIAL CELL UR AU 0 /HPF (0-6); UROBILINOGEN, URINE AUTO 0.2 mg/dL (0.0-2.0); WBC, URINE AUTO TNTC /HPF (0-3)
== END ==
LOC: M LAB REF 15:57
PROVIDERS: ATTEND Obstetrics & Gynecology
DX: R33.9 Retention of urine, unspecified (principal)

== ENCOUNTER → 2020-06-11 | Outpatient (REF) | payer MEDICARE, OTHER | LOC: M LAB REF 17:16 | PROVIDERS: ATTEND Internal Medicine | DX: I48.0 Paroxysmal atrial fibrillation (principal); R33.9 Retention of urine, unspecified; N32.81 Overactive bladder; N39.41 Urge incontinence ==

== ENCOUNTER → 2020-06-11 | Outpatient (REF) | payer MEDICARE, OTHER ==
[2020-06-11 15:11] LABS: APPEARANCE, URINE HAZY (CLEAR); BACTERIA, URINE AUTO 2+ (NEGATIVE); BILIRUBIN, URINE AUTO NEGATIVE (NEGATIVE); BLOOD, URINE BLOOD NEGATIVE (NEGATIVE); COLOR, URINE YELLOW (YELLOW); GLUCOSE, URINE (UA) AUTO NEGATIVE (NEGATIVE); KETONE, URINE AUTO NEGATIVE (NEGATIVE); LEUKOCYTE ESTERASE, URINE AUTO 2+ (NEGATIVE); NITRITE, URINE AUTO NEGATIVE (NEGATIVE); PROTEIN, URINE AUTO NEGATIVE (NEGATIVE); RBC, URINE AUTO 10 /HPF (0-3); SPECIFIC GRAVITY URINE AUTO 1.008 (1.002-1.035); SQUAMOUS EPITHELIAL CELL UR AU 2 /HPF (0-6); UROBILINOGEN, URINE AUTO 0.2 mg/dL (0.0-2.0); WBC, URINE AUTO 85 /HPF (0-3)
== END ==
LOC: M LAB REF 14:00
PROVIDERS: ATTEND Obstetrics & Gynecology
DX: R33.9 Retention of urine, unspecified (principal); N32.81 Overactive bladder; N39.41 Urge incontinence

== ENCOUNTER → 2020-06-29 | Outpatient (REF) | payer MEDICARE, OTHER ==
[2020-06-29 17:34] LABS: AMORPHOUS SEDIMENT SMALL (NEGATIVE); APPEARANCE, URINE CLEAR (CLEAR); BACTERIA, URINE AUTO 1+ (NEGATIVE); BILIRUBIN, URINE AUTO NEGATIVE (NEGATIVE); BLOOD, URINE BLOOD NEGATIVE (NEGATIVE); COLOR, URINE YELLOW (YELLOW); GLUCOSE, URINE (UA) AUTO NEGATIVE (NEGATIVE); KETONE, URINE AUTO NEGATIVE (NEGATIVE); LEUKOCYTE ESTERASE, URINE AUTO 1+ (NEGATIVE); MUCUS, URINE MODERATE (NEGATIVE); NITRITE, URINE AUTO NEGATIVE (NEGATIVE); PROTEIN, URINE AUTO NEGATIVE (NEGATIVE); RBC, URINE AUTO 8 /HPF (0-3); SPECIFIC GRAVITY URINE AUTO 1.015 (1.002-1.035); SQUAMOUS EPITHELIAL CELL UR AU 2 /HPF (0-6); UROBILINOGEN, URINE AUTO 0.2 mg/dL (0.0-2.0); WBC, URINE AUTO 53 /HPF (0-3)
== END ==
LOC: M LAB REF 16:50
PROVIDERS: ATTEND Obstetrics & Gynecology
DX: N32.81 Overactive bladder (principal); N39.41 Urge incontinence; R33.9 Retention of urine, unspecified

== ENCOUNTER → 2020-07-12 | Outpatient (REF) | payer MEDICARE, OTHER ==
[2020-07-12 17:50] LABS: APPEARANCE, URINE TURBID (CLEAR); BACTERIA, URINE AUTO 2+ (NEGATIVE); BILIRUBIN, URINE AUTO NEGATIVE (NEGATIVE); BLOOD, URINE BLOOD 2+ (NEGATIVE); COLOR, URINE YELLOW (YELLOW); GLUCOSE, URINE (UA) AUTO NEGATIVE (NEGATIVE); KETONE, URINE AUTO NEGATIVE (NEGATIVE); LEUKOCYTE ESTERASE, URINE AUTO 3+ (NEGATIVE); MUCUS, URINE MODERATE (NEGATIVE); NITRITE, URINE AUTO NEGATIVE (NEGATIVE); PROTEIN, URINE AUTO 1+ mg/dL (NEGATIVE); RBC, URINE AUTO 77 /HPF (0-3); SPECIFIC GRAVITY URINE AUTO 1.021 (1.002-1.035); SQUAMOUS EPITHELIAL CELL UR AU 3 /HPF (0-6); UROBILINOGEN, URINE AUTO 0.2 mg/dL (0.0-2.0); WBC, URINE AUTO TNTC /HPF (0-3)
== END ==
LOC: M LAB REF 16:32
PROVIDERS: ATTEND Obstetrics & Gynecology
DX: R33.9 Retention of urine, unspecified (principal); N32.81 Overactive bladder; N39.41 Urge incontinence